=== PATIENT | female | born 1995 | race Caucasian/White ===

== ENCOUNTER 2018-12-12 14:23 | Outpatient (REF) | payer MEDICAID, SELFPAY ==
[2018-12-14 10:16] LABS: Varicella IgG Antibody Positive
== END 2018-12-12 14:43 ==
LOC: LBN 14:23
PROVIDERS: PCP Internal Medicine; Visit Provider Internal Medicine
DX: Z11.59 Encounter for screening for other viral diseases (principal); Z01.84 Encounter for antibody response examination
CPT/HCPCS: 86787

== ENCOUNTER 2019-03-27 11:16 | Emergency (ER) | payer MEDICAID, SELFPAY ==
[2019-03-27 11:29] VITALS: BP 118/74; PULSE 94; RESP 16; TEMP 36.7; O2SAT 97
--- NOTE | 2019-03-27 11:34 | ED.GENADUL_ITS ---
Discharge Plan Disposition Patient Disposition: HOME Condition: Stable Discharge Details Chief Complaint: Urinary Clinical Impression: UTI (urinary tract infection) Primary Care Provider: Rufina Downing ED Provider: Nany Clark Home Meds and New Rx's Prescriptions: New cephalexin [Keflex] 500 mg capsule 500 mg PO BID Qty: 9 RF: 0 Continued ibuprofen 200 mg tablet 600 mg PO QID PRNRF: 0 diphenhydramine HCl [Benadryl Allergy] 25 mg tablet 25 mg PO QHS PRNRF: 0 triamcinolone acetonide 0.5 % cream 1 applic TP .BID-QID Qty: 15 RF: 0 Pepto-Bismol 262 MG tablet 262 mg PO PRN PRNRF: 0 hydroxyzine HCl 25 mg tablet 25 mg PO QID PRN (Reason: anxiety) Qty: 90 RF: 2 duloxetine [Cymbalta] 60 mg capsule,delayed release(DR/EC) 120 mg PO DAILY Qty: 90 RF: 3 buspirone 15 mg tablet 15 mg PO BID Qty: 180 RF: 3 norethindrone ac-eth estradiol [Loestrin 09/10 (21)] 1-20 mg-mcg tablet 1 tab PO DAILY Qty: 4 RF: 3 quetiapine 300 mg tablet 300 mg PO HS Qty: 90 RF: 0 No Action ropinirole 0.5 mg tablet 1.5 mg PO HS PRN (Reason: restless legs) Qty: 270 RF: 3 sertraline [Zoloft] 50 mg tablet 50 mg PO DAILY Qty: 90 RF: 3 sumatriptan succinate [Imitrex] 25 mg tablet 25 mg PO see instructions Qty: 8 RF: 3 Discharge Instructions Instructions: Cephalexin (By mouth), Urinary Tract Infection in Women (ED) Additional Instructions: Please return immediately to the emergency department if you develop any new or worsening symptoms or if you become otherwise concerned. It is extremely important that you call soon as possible to make an appointment to be seen in follow-up for this visit by your primary care doctor. Referrals: Rufina Downing MD [Primary Care Provider] - Discharge Data Discharge Date/Time-TO BE ENTERED AT DEPARTURE: 03/27/19 12:27 Medical Decision Making Lindy Sawant is a 23-year-old woman with a history of anxiety, depression, opioid use disorder who presented to the emergency department with urinary symptoms typical of past UTIs over the past 3 days. On exam patient is very well and nontoxic appearing. Abdominal exam is benign. There is no CVA tenderness. Concern for likely uncomplicated UTI, doubt cervicitis at this time. Exam/history is not consistent with sepsis, pyelonephritis, PID, other acute emergent life-threatening process. Plan for UA, urine test. UA consistent with UTI. Urine test negative. Will send culture. Plan for Keflex. I had a lengthy discussion with the patient regarding return to emergency department precautions, home care, and importance of outpatient follow-up with her PCP. Patient verbalized understanding of the plan was amenable. All questions were answered. Medical Records Medical records reviewed: Yes I reviewed the patient's medical records. Lab Data Lab results reviewed: Yes I reviewed the patient's lab results. 03/27/19 11:35 Urine - Reflex from Ua Urine Culture - Final Staphylococcus Saprophyticus Gram Positive [facility] Tests Range/Units 03/27/19 11:35 Urine Color (Yellow) Yellow Urine Clarity (Clear) Cloudy Urine pH (5-8) 7.0 Ur Specific [place] (1.005-1.025) 1.020 Urine Protein (Negative) mg/dL Trace H Urine Ketones (Negative) mg/dL Negative Urine Blood (Negative) Trace-intact H Urine Nitrite (Negative) Negative Urine Bilirubin (Negative) Negative Urine Urobilinogen (Up TO 0.2) EU/dL 0.2 Ur Leukocyte Esterase (Negative) Trace H Urine RBC Not Applicable Urine WBC (0-5) HPF 20-50 Ur Epithelial Cells (Negative) HPF Few Urine Crystals Not Applicable Urine Bacteria (Negative) HPF Many Urine Mucus Not Applicable Ur Culture Indicated? Yes Urine Glucose (Negative) mg/dL Negative HPI General Mode of arrival: ambulatory . Date/Time Provider Initiated Documentation: 03/27/19 11:33 . Limitations to Documentation: no limitations . Information obtained by: patient . HPI Narrative: Lindy Sawant is a 23-year-old woman with a history of anxiety, depression, opioid use disorder presenting to the emergency department with urinary symptoms. Patient reports over the past 3 days she has had increased urinary frequency, urgency, and a burning sensation during urination. She reports mild pain in the suprapubic area. She denies any other pain. Patient reports that she has had similar symptoms in the past with several other UTIs. She states that she has had 3-4 UTIs in her life, with the last being approximately 1 year ago. Patient reports that each of these were treated with outpatient antibiotics without issue. Patient reports that she has no unusual or atypical features at this time. She denies vaginal discharge. No new sexual partners. She denies fevers, vomiting, diarrhea and feels otherwise in her usual state of health. Related Data Home Medications Medication Instructions Recorded Confirmed Pepto-Bismol 262 mg PO PRN PRN 11/06/14 03/27/19 hydroxyzine HCl 25 mg tablet 25 mg PO QID PRN #90 tab-cap 05/09/18 12/12/18 ibuprofen 200 mg tablet 600 mg PO QID PRN tab 06/20/18 03/27/19 buspirone 15 mg tablet 15 mg PO BID #180 tab-cap 07/25/18 03/27/19 duloxetine 60 mg capsule,delayed 120 mg PO DAILY #90 tab 07/25/18 03/27/19 release triamcinolone acetonide 0.5 % 1 applic TP .BID-QID #15 gm 08/31/18 03/27/19 topical cream norethindrone acetate 1 mg-ethinyl 1 tab PO DAILY #4 tab 11/29/18 03/27/19 estradiol 20 mcg tablet diphenhydramine HCl 25 mg tablet 25 mg PO QHS PRN 12/12/18 03/27/19 quetiapine 300 mg tablet 300 mg PO HS #90 tab-cap 03/20/19 03/27/19 cephalexin [Keflex] 500 mg PO BID #9 cap 03/27/19 ropinirole 0.5 mg tablet 1.5 mg PO HS PRN #270 tab-cap 03/28/19 sertraline 50 mg tablet 50 mg PO DAILY #90 tab-cap 03/28/19 sumatriptan succinate 25 mg tablet 25 mg PO see instructions #8 03/28/19 tab-cap Previous Rx's Medication Instructions Recorded hydroxyzine HCl 25 mg tablet 25 mg PO QID PRN #90 tab-cap 05/09/18 buspirone 15 mg tablet 15 mg PO BID #180 tab-cap 07/25/18 duloxetine 60 mg capsule,delayed 120 mg PO DAILY #90 tab 07/25/18 release triamcinolone acetonide 0.5 % 1 applic TP .BID-QID #15 gm 08/31/18 topical cream norethindrone acetate 1 mg-ethinyl 1 tab PO DAILY #4 tab 11/29/18 estradiol 20 mcg tablet quetiapine 300 mg tablet 300 mg PO HS #90 tab-cap 03/20/19 cephalexin [Keflex] 500 mg PO BID #9 cap 03/27/19 ropinirole 0.5 mg tablet 1.5 mg PO HS PRN #270 tab-cap 03/28/19 sertraline 50 mg tablet 50 mg PO DAILY #90 tab-cap 03/28/19 sumatriptan succinate 25 mg tablet 25 mg PO see instructions #8 03/28/19 tab-cap Allergies Allergy/AdvReac Type Severity Reaction Status Date / Time adhesive Allergy Intermediate Rash and Verified 03/27/19 11:31 inflammation benzoyl peroxide Allergy Intermediate Rash Verified 03/27/19 11:31 latex Allergy Intermediate rash Verified 03/27/19 11:31 methylprednisolone Allergy Intermediate Skin Rash Verified 03/27/19 11:31 nettle Allergy Mild rash Verified 03/27/19 11:31 Acne Free Allergy Intermediate Rash Uncoded 03/27/19 11:31 General Stated Complaint: Urinary DENNY: 3 Review of Systems Review of Systems Constitutional: denies fevers Eyes: denies eye pain ENT: denies facial pain, dental pain, sore throat Cardiovascular: denies chest pain Respiratory: denies SOB, cough GI: denies vomiting, diarrhea, reports mild lower abdominal pain worse during urination : denies flank pain, vaginal discharge, reports urinary frequency, hesitancy, and burning MSK: denies back pain, neck pain, arthralgias, myalgias Skin: denies rash Neuro: denies headaches [facility] Medical History ADHD (attention deficit hyperactivity disorder) (Acute 11/04/14) Depressive disorder (Acute 11/04/14) Dermatitis (Acute) Environmental allergies (Acute 11/04/14) Esophageal reflux (Acute 11/04/14) JULIANA (generalized anxiety disorder) (Acute 08/02/16) Migraine headache (Acute 10/30/15) Post-traumatic stress disorder (Acute 08/02/16) Restless legs syndrome (RLS) (Acute 02/28/17) Tobacco use disorder (Acute 11/04/14) Uncomplicated opioid abuse (Acute 08/02/16) Unspecified contraceptive management (Acute 10/25/16) Social History Smoking/Tobacco Use Status: Former Tobacco Use Alcohol Intake: current Alcohol Intake frequency: holidays/special occasions only Drug use: Never Substance use type: does not use Number of Children: 0 current occupation: works at [id number] Pets and animals: Yes Pets and animals: other Details: rabbit Sexually active: Yes Current gender identity: female What type of physical activity do you participate in: regular exercise Frequency: 1-2 times per week Working smoke detector in home: No Carbon monox detector in home: No Do you feel safe in your relationship?: Yes History History 0 Para Hx # Term Pregnancies Multiple births Hx # Pregnancies Ectopic pregnancies AB induced Hx Number of Living Children AB spontaneous Exam Narrative Exam Narrative: Constitutional: well and [id number], pleasant, conversing normally HENT: head atraumatic/normocephalic/normal inspection, mucous membranes moist Eyes: conjunctiva normal, sclera normal, pupils 3mm b/l Neck: no stridor, normal ROM, trachea midline Resp: normal work of breathing, LCTAB Cardio: normal rate, normal rhythm, no murmur appreciated GI: abdomen soft, non-tender, non-distended Back: No CVA tenderness bilaterally Skin: warm, dry, normal color, no rash Neuro: alert, not altered, grossly non-focal, normal tone Ext: Moving all extremities equally Psych: normal mood, normal affect, normal behavior Course Vital Signs Temperature 36.7 C 03/27/19 11:29 Pulse 94 H 03/27/19 11:29 Respiratory Rate 16 03/27/19 11:29 Blood Pressure 118/74 03/27/19 11:29 Pulse Oximetry 97 03/27/19 11:29 Temperature 36.7 C 03/27/19 11:29 Temperature Source Skin 03/27/19 11:29 Pulse 94 H 03/27/19 11:29 Respiratory Rate 16 03/27/19 11:29 Respiratory Effort Non-Labored 03/27/19 11:29 Blood Pressure 118/74 03/27/19 11:29 Blood Pressure Position Sitting 03/27/19 11:29 Pulse Oximetry 97 03/27/19 11:29 Oxygen Delivery Method Room Air 03/27/19 11:29 Oxygen Flow Rate 0 03/27/19 11:29 Pain Level 2 03/27/19 11:29
[2019-03-27 11:47] LABS: Bilirubin Negative (Negative); Blood Trace-intact (Negative); Clarity Cloudy (Clear); Glucose Negative (Negative); Ketones Negative (Negative); Leukocyte Esterase Trace (Negative); Nitrite Negative (Negative); Urobilinogen 0.2 EU/dL (Up TO 0.2)
[2019-03-27 12:00] LABS: Bacteria Many HPF (Negative); Epithelial Cells Few HPF (Negative); WBC 20-50 HPF (0-5)
[2019-03-27 12:01] LABS: C & S Indicated? Yes
[2019-03-27] MEDS: Cephalexin 500 MG CAP PO (12:27)
== END 2019-03-27 12:27 | disposition home or self-care (01) ==
PROVIDERS: Emergency Provider Student in an Organized Health Care Education/Training Program; PCP Internal Medicine
DX: N39.0 Urinary tract infection, site not specified (principal); B95.7 Other staphylococcus as the cause of diseases classified elsewhere; Z87.440 Personal history of urinary (tract) infections
CPT/HCPCS: 81025; 87077; 99283; 81003; 81015; 87086; 87186

== ENCOUNTER 2020-01-15 12:39 | Outpatient (REF) | payer MEDICAID, SELFPAY ==
--- NOTE | 2020-01-15 11:00 | PAPFT_PTH ---
PATIENT: Lindy Urbina LOC: [facility] U#:[id number] AGE/SX: 24/F ROOM: RE01/15/[address]: JACOB Toure : 1995 BED: DIS: 01/15/2020 SPEC #: [id number] RECD: 01/15/20 13:01 STATUS: QAMAR REKrystle #: [id number] MARTA: 01/15/20 11:[address]: Paola Moise DEPT: [facility] Cytology RECD BY: Jeane Akhtar ENTERED: 01/15/20 13:01 SP TYPE: PAPFT OTHR DR: Rufina Downing MD Tissues: 1 - CX/ENDOCX FOR PAP SMEARS Procedures: PAP THIN PREP/UVM Screening Comments: [id number]
[2020-01-17 07:21] LABS: Chlamydia Result Negative (Negative); GC Result Negative (Negative)
== END 2020-01-15 12:59 ==
LOC: LBN 12:39
PROVIDERS: PCP Internal Medicine; Visit Provider Nurse Practitioner Family
DX: Z11.3 Encounter for screening for infections with a predominantly sexual mode of transmission (principal); Z12.4 Encounter for screening for malignant neoplasm of cervix
CPT/HCPCS: 87491; 87591; 88142

== ENCOUNTER 2020-07-11 13:19 | Emergency (ER) | payer MEDICAID, SELFPAY ==
[2020-07-11 13:22] VITALS: BP 126/88; PULSE 117; RESP 18; TEMP 36.7; O2SAT 94
[2020-07-11 13:57] LABS: Bilirubin Color Interference (Negative); Blood Color Interference (Negative); Clarity Cloudy (Clear); Glucose Color Interference mg/dL (Negative); Ketones Color Interference mg/dL (Negative); Leukocyte Esterase Color Interference (Negative); Nitrite Color Interference (Negative); Urobilinogen Color Interference EU/dL (Up TO 0.2)
--- NOTE | 2020-07-11 13:57 | ED.GENADUL_ITS ---
Discharge Plan Disposition Patient Disposition: HOME Condition: Improving Discharge Details Clinical Impression: Acute cystitis Primary Care Provider: Rufina Downing ED Provider: Ramiro Morton Home Meds and New Rx's Prescriptions: New cephalexin 500 mg capsule 500 mg PO TID 7 Days Qty: 21 RF: 0 Continued diphenhydramine HCl [Benadryl Allergy] 25 mg tablet 25 mg PO QHS PRNRF: 0 hydroxyzine HCl 25 mg tablet 25 mg PO QID PRN (Reason: anxiety) Qty: 90 RF: 3 Pepto-Bismol 262 MG tablet 262 mg PO PRN PRNRF: 0 duloxetine [Cymbalta] 60 mg capsule,delayed release(DR/EC) 120 mg PO DAILY Qty: 90 RF: 3 ropinirole 0.5 mg tablet 1.5 mg PO HS PRN (Reason: restless legs) Qty: 270 RF: 3 sertraline [Zoloft] 50 mg tablet 50 mg PO DAILY Qty: 90 RF: 3 norethindrone ac-eth estradiol [Loestrin 09/10 ()] 1-20 mg-mcg tablet 1 tab PO DAILY Qty: 84 RF: 3 quetiapine [Seroquel] 400 mg tablet 400 mg PO QHS Qty: 90 RF: 3 buspirone 15 mg tablet 15 mg PO BID Qty: 180 RF: 2 sumatriptan succinate [Imitrex] 25 mg tablet 25 mg PO see instructions PRNRF: 0 Discharge Instructions Additional Instructions: Continue small, frequent sips of fluids to maintain hydration Take antibiotics as prescribed. May continue the Urostat as you have been. Return to the ER for fever, vomiting, worsening discomfort or any other acute concerns. Medical Decision Making This is 24-year-old female who presents with 3 days of intermittent episodes of burning and frequency of urination. She has not had a fever, back pain, nor vomiting or abdominal pain. She was noted to have an elevated heart rate at triage, within normal limits at time of my exam. Her exam is reassuring and she is not toxic in appearance. Urinalysis obtained and obscured by the use of urostat. Greater than 50 white blood cells and few squamous cells present. I do feel the presentation, history of same, are consistent with urinary tract infection will treat with a course of antibiotics. She is stable and appropriate for discharge to home. HPI General Mode of arrival: ambulatory . Date/Time Provider Initiated Documentation: 07/11/20 13:19 . Limitations to Documentation: no limitations . Information obtained by: patient . History of Present Illness 24 year old F presents to the emergency department with the chief complaint of Burning with urination for 3 days, and is localized to the pelvis and genitals. Patient reports no radiation. Patient started experiencing this day(s) and it has been intermittent. No relieving factors improve symptom(s), No exacerbating factors reported . Patient notes denies fever/chills, loss of appetite and nausea/vomiting. Patient did receive the following treatments prior to arrival, other ([id number] Urostat) Related Data Home Medications Medication Instructions Recorded Confirmed Pepto-Bismol 262 mg PO PRN PRN 11/06/14 07/11/20 diphenhydramine HCl 25 mg tablet 25 mg PO QHS PRN 12/12/18 07/11/20 hydroxyzine HCl 25 mg tablet 25 mg PO QID PRN #90 tab-cap 07/04/19 07/11/20 duloxetine 60 mg capsule,delayed 120 mg PO DAILY #90 tab 08/11/19 07/11/20 release ropinirole 0.5 mg tablet 1.5 mg PO HS PRN #270 tab-cap 02/25/20 07/11/20 sertraline 50 mg tablet 50 mg PO DAILY #90 tab-cap 02/25/20 07/11/20 norethindrone acetate 1 mg-ethinyl 1 tab PO DAILY #84 tab 04/18/20 07/11/20 estradiol 20 mcg tablet quetiapine 400 mg tablet 400 mg PO QHS #90 tab 05/20/20 07/11/20 buspirone 15 mg tablet 15 mg PO BID #180 tab-cap 07/08/20 07/11/20 cephalexin 500 mg PO TID 7 Days #21 cap 07/11/20 sumatriptan succinate [Imitrex] 25 mg PO see instructions PRN 07/11/20 07/11/20 Previous Rx's Medication Instructions Recorded hydroxyzine HCl 25 mg tablet 25 mg PO QID PRN #90 tab-cap 07/04/19 duloxetine 60 mg capsule,delayed 120 mg PO DAILY #90 tab 08/11/19 release ropinirole 0.5 mg tablet 1.5 mg PO HS PRN #270 tab-cap 02/25/20 sertraline 50 mg tablet 50 mg PO DAILY #90 tab-cap 02/25/20 norethindrone acetate 1 mg-ethinyl 1 tab PO DAILY #84 tab 04/18/20 estradiol 20 mcg tablet quetiapine 400 mg tablet 400 mg PO QHS #90 tab 05/20/20 buspirone 15 mg tablet 15 mg PO BID #180 tab-cap 07/08/20 cephalexin 500 mg PO TID 7 Days #21 cap 07/11/20 Allergies Allergy/AdvReac Type Severity Reaction Status Date / Time adhesive Allergy Intermediate Rash and Verified 07/11/20 13:25 inflammation benzoyl peroxide Allergy Intermediate Rash Verified 07/11/20 13:25 latex Allergy Intermediate rash Verified 07/11/20 13:25 methylprednisolone Allergy Intermediate Skin Rash Verified 07/11/20 13:25 nettle Allergy Mild rash Verified 07/11/20 13:25 Acne Free Allergy Intermediate Rash Uncoded 07/11/20 13:25 General Stated Complaint: Urinary DENNY: 3 Review of Systems Narrative: No fever, no back pain, no vaginal bleeding or discharge. 6 systems reviewed and otherwise negative [facility] Medical History ADHD (attention deficit hyperactivity disorder) (11/04/14) Depressive disorder (11/04/14) Per Sienna Fofana [employer] F33.1 07/27/16 RH Dermatitis Environmental allergies (11/04/14) Esophageal reflux (11/04/14) Flushing JULIANA (generalized anxiety disorder) (08/02/16) Migraine headache (10/30/15) Has h/o migraine headaches Post-traumatic stress disorder (08/02/16) Restless legs syndrome (RLS) (02/28/17) 02/28/17 Sleep Services Tobacco use disorder (11/04/14) Uncomplicated opioid abuse (08/02/16) Unspecified contraceptive management (10/25/16) Family History Mother Migraine Anxiety Depression Diabetes Social History Smoking/Tobacco Use Status: Former Tobacco Use Smoking risk assessment performed?: Yes Alcohol Intake: current Alcohol Intake frequency: holidays/special occasions only Drug use: Never Substance use type: does not use Household members: significant other Number of Children: 0 Communication Needs: None current occupation: works at [employer] Pets and animals: Yes Pets and animals: other Details: rabbit Sexually active: Yes Current gender identity: female What is your relationship status?: living with partner Panel score (0-1 are the most socially isolated patients): 1 What type of physical activity do you participate in: regular exercise Frequency: 1-2 times per week Seatbelt use: sometimes Drive 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 Pleasant, well groomed, interactive. HEAD: Normocephalic, atraumatic EYES: PERRL, EOMI NECK: Full ROM, no DOV, no menigismus CHEST/RESP: Nontender, clear to auscultation bilateral, no wheeze/rhonchi/rales CARDIOVASCULAR: RRR, no murmur, rub elin. 2+ Rad pulse bilateral ABDOMEN: Soft, nontender, no mass. +Bowel sounds EXT: Full ROM, no edema, no rash Neuro: Grossly normal neurologic exam, conversant, interactive. Psych: Speech fluent, thoughts congruent, affect normal Course Vital Signs Vital signs: Vital Signs Temperature 36.7 C 07/11/20 13:22 Pulse 117 H 07/11/20 13:22 Respiratory Rate 18 07/11/20 13:22 Blood Pressure 126/88 07/11/20 13:22 Pulse Oximetry 94 07/11/20 13:22 Temperature 36.7 C 07/11/20 13:22 Temperature Source Temporal Artery Scan 07/11/20 13:22 Pulse 117 H 07/11/20 13:22 Respiratory Rate 18 07/11/20 13:22 Respiratory Effort Non-Labored 07/11/20 13:28 Blood Pressure 126/88 07/11/20 13:22 Blood Pressure Position Sitting 07/11/20 13:22 Pulse Oximetry 94 07/11/20 13:22 Oxygen Delivery Method Room Air 07/11/20 13:22 Oxygen Flow Rate 0 07/11/20 13:22 Pain Level 8 07/11/20 13:22
[2020-07-11 14:02] LABS: C & S Indicated? Yes; Epithelial Cells Few HPF (Negative); WBC >50 HPF (0-5)
[2020-07-11] MEDS: Cephalexin 500 MG CAP PO (14:15)
== END 2020-07-11 14:18 | disposition home or self-care (01) ==
PROVIDERS: Emergency Provider Emergency Medicine; PCP Internal Medicine
DX: N30.00 Acute cystitis without hematuria (principal)
CPT/HCPCS: 81025; 99283; 81003; 81015; 87086

== ENCOUNTER 2021-06-25 14:58 | Outpatient (REF) | payer MEDICAID, SELFPAY ==
--- NOTE | 2021-06-25 14:00 | PAPFT_PTH ---
PATIENT: Lindy Urbina LOC: [facility] U#:[id number] AGE/SX: 25/F ROOM: RE06/25/[address]: JACOB Toure : 1995 BED: DIS: 06/25/2021 SPEC #: [id number] RECD: 06/25/21 16:46 STATUS: QAMAR REQ #: [id number] MARTA: 06/25/21 14:[address]: Paola Moise DEPT: [facility] Cytology RECD BY: Jeane Akhtar ENTERED: 06/25/21 16:47 SP TYPE: PAPFT OTHR DR: Rufina Downing MD Tissues: 1 - CX/ENDOCX FOR PAP SMEARS Procedures: PAP THIN PREP/UVM Screening Comments:
[2021-06-26 14:46] LABS: Chlamydia Result Negative (Negative); GC Result Negative (Negative)
== END 2021-06-25 14:59 | disposition home or self-care (01) ==
LOC: LBN 14:58
PROVIDERS: PCP Internal Medicine; Visit Provider Nurse Practitioner Family
DX: Z11.3 Encounter for screening for infections with a predominantly sexual mode of transmission (principal); Z12.4 Encounter for screening for malignant neoplasm of cervix
CPT/HCPCS: 87491; 87591; 88142

== ENCOUNTER 2021-10-25 15:48 | Emergency (ER) | payer MEDICAID, SELFPAY ==
[2021-10-25] VITALS (17 sets, daily range): BP systolic 108–130; BP diastolic 76–94; PULSE 98–139; RESP 12–18; TEMP 36.5–37.6; O2SAT 97–99
--- NOTE | 2021-10-25 15:45 | RT.EKG_ITS ---
APPROVED REPORT Exam: Resting ECG Reason for Exam: chest pressure Patient Location: E HR:112 bpm ECG Measurements Heart Rate 112 AXIS KS 150 P 49 QRSd 81 QRS -18 QT 291 T 17 QTc 397 Conclusion Sinus tachycardia...rate> 99. Sinus. No STEMI. I have reviewed and interpreted ECG and agree with software generated interpretation.
--- NOTE | 2021-10-25 16:00 | DI.RAD_ITS ---
Exam(s) XR CHEST 2V PA LATERAL EXAM: XR CHEST 2V PA LATERAL CLINICAL HISTORY: L sided chest pain TECHNIQUE: 2D digital imaging was performed. COMPARISON: [facility] from 02/20/2017 FINDINGS: MEDIASTINUM: Normal. HEART: Normal. PULMONARY VASCULATURE: Normal. LUNGS: Clear. PLEURAL SPACE: No pleural effusion or pneumothorax. BONE:Unremarkable for age. IMPRESSION: No acute abnormality. DATA REPOSITORY: RADIATION DOSE DELIVERED:
[2021-10-25] MEDS: Normal Saline 1,000 ML 1000 ML IV (16:27)
--- NOTE | 2021-10-25 16:31 | ED.GENADUL_ITS ---
Discharge Plan Disposition Patient Disposition: HOME Condition: Improving Discharge Details Clinical Impression: Chest pressure Primary Care Provider: Rufina Downing ED Provider: Constantino Rodrigez Home Meds and New Rx's Prescriptions: Continued diphenhydramine HCl [Benadryl Allergy] 25 mg tablet 25 mg PO QHS PRN0RF metoprolol succinate 25 mg tablet extended release 24 hr 25 mg PO DAILY Qty: 90 3RF medroxyprogesterone [Depo-Provera] 150 mg/mL syringe 150 mg IM ONCE Qty: 1 0RF duloxetine [Cymbalta] 60 mg capsule,delayed release(DR/EC) 120 mg PO DAILY Qty: 90 3RF sertraline [Zoloft] 50 mg tablet 50 mg PO DAILY Qty: 90 3RF quetiapine [Seroquel] 400 mg tablet 400 mg PO QHS Qty: 90 3RF hydroxyzine HCl 25 mg tablet 25 mg PO QID PRN (Reason: anxiety) Qty: 90 3RF medroxyprogesterone [Depo-Provera] 150 mg/mL suspension 150 mg IM Q12W Qty: 1 3RF Pepto-Bismol 262 MG tablet 262 mg PO PRN PRN0RF ropinirole 0.5 mg tablet 1.5 mg PO HS PRN (Reason: restless legs) Qty: 270 3RF Rx Instructions: 3 tabs at bedtime as needed for restless legs buspirone 15 mg tablet 15 mg PO BID Qty: 180 3RF sumatriptan succinate [Imitrex] 25 mg tablet 25 mg PO see instructions PRN0RF Rx Instructions: take one tab for migraine and can repeat in 2 hours if not better, Cannot take more than 4 tabs in a day Discharge Instructions Instructions: Chest Pain (ED) Additional Instructions: Blood pressure here in the ER today has been slightly low to normal but certainly not emergent. Work-up in the ER does not reveal any obvious emergent process. We did discuss having you stay in the ER longer for observation and repeating your cardiac enzyme, troponin, but if you feel well and would rather be discharged home. Please watch for new or worsening symptoms and return to the ER for any concerns. As we discussed, please check your blood pressure 2-3 times a day at the same time under the same circumstances and make a log and bring this information to your primary care provider so they can adjust your blood pressure medications if required. I do recommend contacting your primary care office tomorrow to discuss your ER visit need for outpatient reevaluation. Discharge Data Discharge Date/Time-TO BE ENTERED AT DEPARTURE: 10/25/21 18:41 Medical Decision Making This is a 26-year-old female who reports history of hypertension, felt funny approximately 1 or 2 hours ago which prompted her to check her blood pressure and noted it to be 100/60 which she reports is very low for her. Subsequently she states that she panicked and then felt a sensation in her chest. Clinically she appears well, nontoxic, blood pressure appropriate at 130/94. Pulse is 117 in triage, during my exam it is 98. She is currently asymptomatic. Given her presentation, EKG was obtained and I will initiate a cardiac work-up although low suspicion for ACS. We will also obtain a D-dimer given she does receive Depo injections although low suspicion for PE. We will also obtain thyroid studies. Pt provided 1 L IV fluid. Initial laboratory values are unremarkable for any obvious emergent process. No evidence of infection, anemia, D-dimer is unremarkable at 421, will not pursue CTA of the chest. Electrolytes unremarkable, troponin less than 50, TSH 2.65. Urinalysis negative for infection Unremarkable chest X-ray Discussed work-up with patient. She is relieved, remains hemodynamically sta ble, and remains asymptomatic. Given her initial presentation we discussed observation here in the ER and obtaining a repeat delta troponin at the 3-hour savannah. Patient states that she feels well and would prefer to be discharged. She does understand that without a delta troponin her work-up here in the ER is not complete. We discussed her blood pressure in length. Plan is to make a log of her blood pressure at home and to bring this to her primary care provider so they can assess her blood pressures over a period of time and simply not 1 blood pressure reading. Strict discharge and return precautions were provided. This documentation was generated using [employer] system, please disregard any oddities of phrase or misspellings. Medical Records Medical records reviewed: Yes I reviewed the patient's medical records. Imaging Data Radiologic Study: Attestation: I personally reviewed and interpreted this imaging study as follows: Imaging: X-Ray Radiologist's impression: PROCEDURE INFORMATION: Exam: XR Chest Exam date and time: 10/25/2021 4:08 PM Age: 26 years old Clinical indication: Other: L sided chest pain TECHNIQUE: Imaging protocol: XR of the chest. Views: 2 views. COMPARISON: CR THORACIC SPINE 02/20/2017 5:07 PM FINDINGS: Lungs: Clear lungs. Pleural spaces: No sizable pleural effusion. No pneumothorax. Heart/Mediastinum: Cardiomediastinal inés houette is within normal limits. Bones/joints: No acute displaced fracture or dislocation. IMPRESSION: No acute cardiopulmonary process. Lab Data Lab results reviewed: Yes I reviewed the patient's lab results. Labs: Laboratory Tests Range/Units 10/25/21 10/25/21 10/25/21 16:20 16:20 16:27 WBC (4.4-10.8) 10^3/uL RBC (3.93-5.22) 10^6/uL Hgb (11.2-15.7) g/dL Hct (36.0-46.0) % MCV (80-95) fL MCH (27.0-33.0) pg MCHC (32.0-36.0) % RDW (11.7-14.6) % Plt Count (130-400) 10^3/uL MPV (8.0-11.0) fL Immature Gran % Neutrophils % Lymphocytes % Monocytes % Eosinophils % Basophils % Nucleated RBC % % Absolute Neutrophils (1.2-6.7) 10^3/uL Absolute Lymphocytes (1.2-3.4) 10^3/uL Absolute Monocytes (0.1-0.8) 10^3/uL Absolute Eosinophils (0.0-0.7) 10^3/uL Absolute Basophils (0.0-0.2) 10^3/uL PT (9.3-11.0) sec INR (0.9-1.1) APTT (21.0-27.5) sec D-Dimer (<500) ng/mlFEU Sodium (136-145) mmol/L 137 Potassium (3.5-5.1) mmol/L 4.1 Chloride (98-107) mmol/L 104 Carbon Dioxide (21.0-32.0) mmol/L 24.4 Anion Gap (3-11) mmol/L 8.6 BUN (7-18) mg/dL 10 Creatinine (0.55-1.02) mg/dL 1.1 H Estimated GFR/1.73 m2 (mL/min/1.73m2) 59.58 Glucose (74-106) mg/dL 93 Calcium (8.5-10.1) mg/dL 9.0 Magnesium (1.8-2.4) mg/dL 2.0 Total Bilirubin (0.2-1.0) mg/dL 0.3 AST (15-37) U/L 15 ALT (14-59) U/L 21 Alkaline Phosphatase (46-116) U/L 113 Troponin I (<or=60) ng/L < 50 Total Protein (6.4-8.2) g/dL 7.9 Albumin (3.4-5.0) g/dL 3.8 TSH (0.36-3.74) uIU/mL 2.65 Urine Color (Yellow) Yellow Urine Clarity (Clear) Clear Urine pH (5-8) 6.5 Ur Specific [place] (1.005-1.025) >= 1.030 H Urine Protein (Negative) mg/dL 30 H Urine Ketones (Negative) mg/dL Negative Urine Blood (Negative) Negative Urine Nitrite (Negative) Negative Urine Bilirubin (Negative) Negative Urine Urobilinogen (Up TO 0.2) EU/dL 0.2 Ur Leukocyte Esterase (Negative) Negative Urine RBC (0-2) HPF 3-5 H Urine WBC (0-5) HPF 0-2 Ur Epithelial Cells (Negative) HPF Many Urine Crystals (Negative) HPF Negative Urine Bacteria (Negative) HPF Many Urine Casts (Negative) LPF Negative Urine Mucus (Negative) Negative Ur Culture Indicated? No/Sq. Contamination Urine Glucose (Negative) mg/dL Negative Urine Opiates Screen (Negative) Negative Urine Methadone Screen (Negative) Negative Ur Barbiturates Screen (Negative) Negative Ur Tricyclics Screen (Negative) Positive A Ur Amphetamines Screen (Negative) Negative U Benzodiazepines Scrn (Negative) Negative Urine Cocaine Screen (Negative) Negative Ur THC Screen (Negative) Negative Range/Units 10/25/21 10/25/21 10/25/21 16:27 16:27 19:07 WBC (4.4-10.8) 10^3/uL 6.91 RBC (3.93-5.22) 10^6/uL 4.52 Hgb (11.2-15.7) g/dL 13.4 Hct (36.0-46.0) % 40.3 MCV (80-95) fL 89.2 MCH (27.0-33.0) pg 29.6 MCHC (32.0-36.0) % 33.3 RDW (11.7-14.6) % 12.4 Plt Count (130-400) 10^3/uL 285 MPV (8.0-11.0) fL 9.2 Immature Gran % 0.4 Neutrophils % 64.8 Lymphocytes % 23.9 Monocytes % 8.8 Eosinophils % 0.9 Basophils % 1.2 Nucleated RBC % % 0 Absolute Neutrophils (1.2-6.7) 10^3/uL 4.48 Absolute Lymphocytes (1.2-3.4) 10^3/uL 1.65 Absolute Monocytes (0.1-0.8) 10^3/uL 0.61 Absolute Eosinophils (0.0-0.7) 10^3/uL 0.06 Absolute Basophils (0.0-0.2) 10^3/uL 0.08 PT (9.3-11.0) sec 10.3 INR (0.9-1.1) 1.0 APTT (21.0-27.5) sec 27.7 H D-Dimer (<500) ng/mlFEU 421 Sodium (136-145) mmol/L Potassium (3.5-5.1) mmol/L Chloride (98-107) mmol/L Carbon Dioxide (21.0-32.0) mmol/L Anion Gap (3-11) mmol/L BUN (7-18) mg/dL Creatinine (0.55-1.02) mg/dL Estimated GFR/1.73 m2 (mL/min/1.73m2) Glucose (74-106) mg/dL Calcium (8.5-10.1) mg/dL Magnesium (1.8-2.4) mg/dL Total Bilirubin (0.2-1.0) mg/dL AST (15-37) U/L ALT (14-59) U/L Alkaline Phosphatase (46-116) U/L Troponin I (<or=60) ng/L Cancelled Total Protein (6.4-8.2) g/dL Albumin (3.4-5.0) g/dL TSH (0.36-3.74) uIU/mL Urine Color (Yellow) Urine Clarity (Clear) Urine pH (5-8) Ur Specific [place] (1.005-1.025) Urine Protein (Negative) mg/dL Urine Ketones (Negative) mg/dL Urine Blood (Negative) Urine Nitrite (Negative) Urine Bilirubin (Negative) Urine Urobilinogen (Up TO 0.2) EU/dL Ur Leukocyte Esterase (Negative) Urine RBC (0-2) HPF Urine WBC (0-5) HPF Ur Epithelial Cells (Negative) HPF Urine Crystals (Negative) HPF Urine Bacteria (Negative) HPF Urine Casts (Negative) LPF Urine Mucus (Negative) Ur Culture Indicated? Urine Glucose (Negative) mg/dL Urine Opiates Screen (Negative) Urine Methadone Screen (Negative) Ur Barbiturates Screen (Negative) Ur Tricyclics Screen (Negative) Ur Amphetamines Screen (Negative) U Benzodiazepines Scrn (Negative) Urine Cocaine Screen (Negative) Ur THC Screen (Negative) ECG Data Attestation: I personally reviewed and interpreted this ECG (s) as follows: Interpretation: Please see official EKG report by Dr. Vega. Sinus tachycardia, ventricular 112, no STEMI. HPI General Mode of arrival: ambulatory . Date/Time Provider Initiated Documentation: 10/25/21 15:57 . Limitations to Documentation: no limitations . Information obtained by: patient . HPI Narrative: This is a 26-year-old female, past medical history that includes hypertension, migraines, anxiety, GERD, former smoker, presenting to the ER for concern of low blood pressure. Patient states that she has had a cold to control hypertension for quite some time and is on multiple medications, there have been no recent changes. Patient states that she was walking out of a store roughly 1-2 hours ago when she simply did not feel right, felt a little anxious and shaky, difficult to explain exactly what she felt. This prompted her to check her blood pressure and she noted it to be 100/60 which she states is low for her and she panicked. Subsequently she states that she felt a midsternal chest pressure which lasted for a few minutes and after she calmed down resolved com pletely. She reports currently she is asymptomatic. Upon presentation to the ER her blood pressure was 130/94 and her pulse was 117. Patient states that she typically has a somewhat fast heartbeat. Related Data Home Medications Medication Instructions Recorded Confirmed bismuth subsalicylate 262 mg 262 mg PO PRN PRN 11/06/14 10/25/21 tablet (Pepto-Bismol) diphenhydramine HCl 25 mg tablet 25 mg PO QHS PRN 12/12/18 10/25/21 (Benadryl Allergy) sumatriptan succinate 25 mg tablet 25 mg PO see instructions PRN 07/11/20 10/25/21 (Imitrex) duloxetine 60 mg capsule,delayed 120 mg PO DAILY #90 tab 09/30/20 10/25/21 release (Cymbalta) ropinirole 0.5 mg tablet 1.5 mg PO HS PRN #270 tab-cap 02/16/21 10/25/21 metoprolol succinate 25 mg 25 mg PO DAILY #90 tab 04/14/21 10/25/21 tablet,extended release 24 hr hydroxyzine HCl 25 mg tablet 25 mg PO QID PRN #90 tab-cap 05/27/21 10/25/21 quetiapine 400 mg tablet (Seroquel) 400 mg PO QHS #90 tab 05/27/21 10/25/21 sertraline 50 mg tablet (Zoloft) 50 mg PO DAILY #90 tab-cap 05/27/21 10/25/21 medroxyprogesterone 150 mg/mL 150 mg IM Q12W #1 ml 06/25/21 10/25/21 intramuscular suspension (Depo-Provera) buspirone 15 mg tablet 15 mg PO BID #180 tab-cap 07/28/21 10/25/21 Previous Rx's Medication Instructions Recorded duloxetine 60 mg capsule,delayed 120 mg PO DAILY #90 tab 09/30/20 release (Cymbalta) ropinirole 0.5 mg tablet 1.5 mg PO HS PRN #270 tab-cap 02/16/21 metoprolol succinate 25 mg 25 mg PO DAILY #90 tab 04/14/21 tablet,extended release 24 hr hydroxyzine HCl 25 mg tablet 25 mg PO QID PRN #90 tab-cap 05/27/21 quetiapine 400 mg tablet (Seroquel) 400 mg PO QHS #90 tab 05/27/21 sertraline 50 mg tablet (Zoloft) 50 mg PO DAILY #90 tab-cap 10/06/21 medroxyprogesterone 150 mg/mL 150 mg IM Q12W #1 ml 06/25/21 intramuscular suspension (Depo-Provera) buspirone 15 mg tablet 15 mg PO BID #180 tab-cap 07/28/21 Allergies Allergy/AdvReac Type Severity Reaction Status Date / Time adhesive Allergy Intermediate Rash and Verified 10/25/21 16:04 inflammation benzoyl peroxide Allergy Intermediate Rash Verified 10/25/21 16:04 latex Allergy Intermediate rash Verified 10/25/21 16:04 methylprednisolone Allergy Intermediate Skin Rash Verified 10/25/21 16:04 nettle Allergy Mild rash Verified 10/25/21 16:04 Acne Free Allergy Intermediate Rash Uncoded 10/25/21 16:04 General Stated Complaint: GenMedical DENNY: 3 Review of Systems Constitutional Constitutional: Denies fever(s) and Denies headache(s) Eyes Eyes: Denies change in vision ENT Ears, Nose, Mouth, and Throat: Denies headache(s) and Denies neck pain Cardiovascular Cardiovascular: Reports chest pain and Denies dyspnea Respiratory Respiratory: Denies cough and Denies dyspnea Gastrointestinal Gastrointestinal: Denies abdominal pain, Denies nausea and Denies vomiting Musculoskeletal Musculoskeletal: Denies neck pain Integumentary/Breasts Skin/Breast: Denies rash Neurologic Neurologic: Denies headache(s) Psychiatric Psychiatric: Reports anxiety PFSH All Active Problems Chest pressure (Acute) Contraception (Acute) Annual physical exam (Acute) Essential hypertension (Acute) Dermatitis (Acute) Tobacco use disorder (Acute 11/04/14) Restless legs syndrome (RLS) (Acute 02/28/17) 02/28/17 Sleep Services Post-traumatic stress disorder (Acute 08/02/16) Migraine headache (Acute 10/30/15) Has h/o migraine headaches JULIANA (generalized anxiety disorder) (Acute 08/02/16) Esophageal reflux (Acute 11/04/14) Environmental allergies (Acute 11/04/14) Depressive disorder (Chronic 11/04/14) Per Sienna Fofana NP F33.1 07/27/16 [facility] Unspecified contraceptive management (Acute 10/25/16) ADHD (attention deficit hyperactivity disorder) (Acute 11/04/14) Medical History [place] Family History Mother Migraine Anxiety Depression Diabetes Social History Smoking/Tobacco Use Status: Former Tobacco Use Smoking risk assessment performed?: Yes Alcohol Intake: current Alcohol Intake frequency: holidays/special occasions only Drug use: Never Substance use type: does not use Household members: significant other Number of Children: 0 Communication Needs: None current occupation: works at [email or web address] Pets and animals: Yes Pets and animals: other Details: rabbit Sexually active: Yes Current gender identity: female What is your relationship status?: living with partner Panel score (0-1 are the most socially isolated patients): 1 What type of physical activity do you participate in: regular exercise Frequency: 1-2 times per week Seatbelt use: sometimes Drive intox or ride w/intox route delivery service driver: No Working smoke detector in home: No Carbon monox detector in home: No Do you feel safe at home: Yes Do you feel safe in your relationship?: Yes History History 0 Para Hx # Term Pregnancies Multiple births Hx # Pregnancies Ectopic pregnancies AB induced Hx Number of Living Children AB spontaneous Exam Const General: cooperative, healthy appearing, comfortable and no acute distress Orientation: alert, awake and oriented x3 HENMT Head: normal to inspection, normocephalic and atraumatic Face and sinus: normal facial exam Mouth: moist mucous membranes Eyes General: appearance normal, both eyes and all related structures Conjunctivae: conjunctivae normal Neck Neck: normal visual inspection, full ROM, trachea midline and supple Resp Effort & Inspection: normal respiratory effort and able to speak in complete sentences Auscultation: clear to auscultation bilaterally Cardio Rate: regular rate Rhythm: regular rhythm GI Palpation: soft, not firm, no guarding, no pulsatile masses and nontender Back/Spine/Pelvis Back: No back tenderness Skin General skin exam: no rashes or lesions noted Neuro General: patient alert, patient awake, moves all extremities and no focal motor deficits Cognition: normal cognition Speech: speech normal Gait: normal gait Motor: muscle tone normal throughout Sensory Exam: no sensory deficits noted Extrem General: normal to inspection, full ROM, capillary refill normal, no pedal edema and no calf tenderness Psych Appearance: grossly normal Mental Status: mental status grossly normal Course Vital Signs Vital signs: Vital Signs Temperature 37.4 C 10/25/21 15:57 Pulse 117 H 10/25/21 15:57 Respiratory Rate 15 10/25/21 15:57 Blood Pressure 130/94 H 10/25/21 15:57 Pulse Oximetry 98 10/25/21 15:57 Temperature 37.4 C 10/25/21 15:57 Temperature Source Temporal Artery Scan 10/25/21 15:57 Pulse 117 H 10/25/21 15:57 Respiratory Rate 15 10/25/21 16:05 Respiratory Effort Non-Labored 10/25/21 16:05 Respiratory Depth Normal 10/25/21 16:05 Respiratory Pattern Normal 10/25/21 16:05 Blood Pressure 130/94 H 10/25/21 15:57 Blood Pressure Position Supine 10/25/21 15:57 Pulse Oximetry 98 10/25/21 15:57 Oxygen Delivery Method Room Air 10/25/21 15:57 Oxygen Flow Rate 0 10/25/21 15:57 Pain Level 0 10/25/21 15:57
[2021-10-25 16:34] LABS: Abs Immature Grans 0.03 10^3/uL (0.0-0.06); Absolute Basophil Count 0.08 10^3/uL (0.0-0.2); Absolute Eosinophil Count 0.06 10^3/uL (0.0-0.7); Absolute Lymphocyte Count 1.65 10^3/uL (1.2-3.4); Absolute Monocyte Count 0.61 10^3/uL (0.1-0.8); Absolute Neutrophil Count 4.48 10^3/uL (1.2-6.7); Basophils % 1.2; Eosinophils % 0.9; HCT 40.3 % (36.0-46.0); HGB 13.4 g/dL (11.2-15.7); Immature Grans % 0.4; Lymphocytes % 23.9; MCH 29.6 pg (27.0-33.0); MCHC 33.3 % (32.0-36.0); MCV 89.2 fL (80-95); MPV 9.2 fL (8.0-11.0); Monocytes % 8.8; Neutrophils % 64.8; Nucleated RBC 0 %; Platelet Count 285 10^3/uL (130-400); RBC 4.52 10^6/uL (3.93-5.22); RDW 12.4 % (11.7-14.6); RDW-SD 40.8 fL; WBC 6.91 10^3/uL (4.4-10.8)
[2021-10-25 16:39] LABS: Bilirubin Negative (Negative); Blood Negative (Negative); Clarity Clear (Clear); Glucose Negative (Negative); Ketones Negative (Negative); Leukocyte Esterase Negative (Negative); Nitrite Negative (Negative); Specific Gravity >= 1.030 (1.005-1.025); Urobilinogen 0.2 EU/dL (Up TO 0.2); pH 6.5 (5-8)
[2021-10-25 16:49] LABS: Bacteria Many HPF (Negative); C & S Indicated? No/Sq. Contamination; Casts Negative LPF (Negative); Crystals Negative HPF (Negative); Epithelial Cells Many HPF (Negative); Mucus Negative (Negative); WBC 0-2 HPF (0-5)
[2021-10-25 16:56] LABS: Tricyclic Antidepressants Positive (Negative)
[2021-10-25 17:02] LABS: *AMPHETAMINES SCREEN URINE Negative (Negative); *BARBITURATES SCREEN URINE Negative (Negative); *BENZODIAZEPINES SCREEN URINE Negative (Negative); Cannabinoids THC Negative (Negative); Cocaine Screen,Urine Negative (Negative); METHADONE URINE SCREEN Negative (Negative); OPIATES URINE SCREEN Negative (Negative)
[2021-10-25 17:03] LABS: PTT Activated 27.7 sec (21.0-27.5); Prothrombin Time 10.3 sec (9.3-11.0)
[2021-10-25 17:09] LABS: ALT 21 U/L (14-59); AST 15 U/L (15-37); Albumin 3.8 g/dL (3.4-5.0); Alkaline Phosphatase 113 U/L (46-116); Anion Gap 8.6 mmol/L (3-11); BUN 10 mg/dL (7-18); Bilirubin, Total 0.3 mg/dL (0.2-1.0); CO2 24.4 mmol/L (21.0-32.0); CREATININE 1.1 mg/dL (0.55-1.02); Chloride 104 mmol/L (98-107); Estimated GFR 59.58 (mL/min/1.73m2); Glucose 93 mg/dL (74-106); Potassium 4.1 mmol/L (3.5-5.1); Sodium 137 mmol/L (136-145); TSH (W/Ref FT4) 2.65 uIU/mL (0.36-3.74); Total Protein 7.9 g/dL (6.4-8.2); Troponin I < 50 ng/L (<or=60)
--- NOTE | 2021-10-25 17:33 | DI.VRAD_ITS ---
PROCEDURE INFORMATION: Exam: XR Chest Exam date and time: 10/25/2021 4:08 PM Age: 26 years old Clinical indication: Other: L sided chest pain TECHNIQUE: Imaging protocol: XR of the chest. Views: 2 views. COMPARISON: CR THORACIC SPINE 02/20/2017 5:07 PM FINDINGS: Lungs: Clear lungs. Pleural spaces: No sizable pleural effusion. No pneumothorax. Heart/Mediastinum: Cardiomediastinal silhouette is within normal limits. Bones/joints: No acute displaced fracture or dislocation. IMPRESSION: No acute cardiopulmonary process. Dictated and Authenticated by: Alvaro Berger MD. Ordering:JESÚS Meeks MD
[2021-10-25 17:38] LABS: D-Dimer 421 ng/mlFEU (<500)
== END 2021-10-25 18:41 | disposition home or self-care (01) ==
PROVIDERS: Emergency Provider Physician Assistant; PCP Internal Medicine
DX: R07.89 Other chest pain (principal); R03.1 Nonspecific low blood-pressure reading; F41.9 Anxiety disorder, unspecified; I10 Essential (primary) hypertension
CPT/HCPCS: 36415; 80053; 80307; 81025; 93005; 96360; 99284; 71046; 81003; 81015; 83735; 84443; 84484; 85025; 85379; 85610; 85730; 93010; 99283

== ENCOUNTER 2022-12-23 01:43 | Outpatient (CLI) | payer MEDICAID, SELFPAY ==
[2022-12-23 13:29] LABS: Abs Immature Grans 0.03 10^3/uL (0.0-0.06); Absolute Basophil Count 0.07 10^3/uL (0.0-0.2); Absolute Eosinophil Count 0.11 10^3/uL (0.0-0.7); Absolute Lymphocyte Count 2.02 10^3/uL (1.2-3.4); Absolute Monocyte Count 0.53 10^3/uL (0.1-0.8); Absolute Neutrophil Count 4.89 10^3/uL (1.2-6.7); Basophils % 0.9; Eosinophils % 1.4; HCT 39.8 % (36.0-46.0); HGB 13.3 g/dL (11.2-15.7); Immature Grans % 0.4; Lymphocytes % 26.4; MCH 29.7 pg (27.0-33.0); MCHC 33.4 % (32.0-36.0); MCV 89 fL (80-95); MPV 8.8 fL (8.0-11.0); Monocytes % 6.9; Platelet Count 239 10^3/uL (130-400); RBC 4.48 10^6/uL (3.93-5.22); RDW-SD 42.5 fL; WBC 7.65 10^3/uL (4.4-10.8)
[2022-12-23 14:52] LABS: ALT 28 U/L (14-59); AST 16 U/L (15-37); Albumin 3.6 g/dL (3.4-5.0); Alkaline Phosphatase 125 U/L (46-116); Anion Gap 8.9 mmol/L (3-11); BUN 12 mg/dL (7-18); Bilirubin, Total 0.4 mg/dL (0.2-1.0); CO2 24.1 mmol/L (21.0-32.0); CREATININE 1.1 mg/dL (0.55-1.02); Calcium 9.2 mg/dL (8.5-10.1); Calculated LDL 43 mg/dL (<100); Chloride 106 mmol/L (98-107); Cholesterol 104 mg/dL (<200); Estimated GFR 70.19 (mL/min/1.73m2); Glucose 94 mg/dL (74-106); HDL Cholesterol 49 mg/dL (40-60); Potassium 4.2 mmol/L (3.5-5.1); Sodium 139 mmol/L (136-145); TSH (W/Ref FT4) 1.51 uIU/mL (0.36-3.74); Total Protein 7.7 g/dL (6.4-8.2); Triglyceride 60 mg/dL (<150)
== END 2022-12-23 01:44 | disposition home or self-care (01) ==
LOC: LBO 01:43
PROVIDERS: PCP Nurse Practitioner Adult Health; Visit Provider Nurse Practitioner Adult Health
DX: I10 Essential (primary) hypertension (principal); F41.1 Generalized anxiety disorder; F43.10 Post-traumatic stress disorder, unspecified; F32.89 Other specified depressive episodes; G25.81 Restless legs syndrome; G43.909 Migraine, unspecified, not intractable, without status migrainosus
CPT/HCPCS: 36415; 80053; 80061; 84443; 85025

== ENCOUNTER 2023-01-23 11:40 | Emergency (ER) | payer MEDICAID, SELFPAY ==
[2023-01-23 11:47] VITALS: BP 123/89; PULSE 109; RESP 16; TEMP 36.9; O2SAT 97
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
[2023-01-23] MEDS: Acetaminophen 500 MG TAB 1000 MG PO (12:11)
[2023-01-23] MEDS: Benzocaine/Menthol LOZG 15/BOX 1 EACH SUC (12:11)
[2023-01-23] MEDS: Ibuprofen 400 MG TAB PO (12:11)
[2023-01-23 12:27] LABS: Abs Immature Grans 0.05 10^3/uL (0.0-0.06); Absolute Basophil Count 0.07 10^3/uL (0.0-0.2); Absolute Eosinophil Count 0.12 10^3/uL (0.0-0.7); Absolute Lymphocyte Count 1.47 10^3/uL (1.2-3.4); Absolute Monocyte Count 0.41 10^3/uL (0.1-0.8); Basophils % 0.9; Eosinophils % 1.6; HGB 13.1 g/dL (11.2-15.7); Immature Grans % 0.7; Lymphocytes % 19.5; MCHC 32.8 % (32.0-36.0); MCV 92 fL (80-95); Monocytes % 5.5; Neutrophils % 71.8; Platelet Count 216 10^3/uL (130-400); RBC 4.37 10^6/uL (3.93-5.22); RDW-SD 43.2 fL; WBC 7.52 10^3/uL (4.4-10.8)
[2023-01-23 12:42] LABS: ALT 25 U/L (14-59); AST 15 U/L (15-37); Albumin 3.5 g/dL (3.4-5.0); Alkaline Phosphatase 123 U/L (46-116); Anion Gap 8.5 mmol/L (3-11); BUN 14 mg/dL (7-18); Bilirubin, Total 0.4 mg/dL (0.2-1.0); CO2 24.5 mmol/L (21.0-32.0); CREATININE 0.9 mg/dL (0.55-1.02); Calcium 8.4 mg/dL (8.5-10.1); Chloride 106 mmol/L (98-107); Glucose 90 mg/dL (74-106); Potassium 4.2 mmol/L (3.5-5.1); Sodium 139 mmol/L (136-145); Total Protein 7.4 g/dL (6.4-8.2)
[2023-01-23 12:45] LABS: Mono Screening Negative (Negative)
[2023-01-23 13:01] LABS: COVID-19 PCR Negative (Negative); Influenza A PCR Negative (Negative); Influenza B PCR Negative (Negative); RSV PCR Negative (Negative)
[2023-01-23 13:03] VITALS: BP 120/84; PULSE 89; RESP 16; TEMP 36.9; O2SAT 98
[2023-01-23 13:06] LABS: Source Nasopharynx
== END 2023-01-23 13:06 | disposition home or self-care (01) ==
PROVIDERS: Emergency Provider Student in an Organized Health Care Education/Training Program; PCP Nurse Practitioner Adult Health
DX: J02.8 Acute pharyngitis due to other specified organisms (principal)
CPT/HCPCS: 36415; 80053; 87637; 87880; 99283; 85025; 86308; 87081

== ENCOUNTER 2023-05-01 11:51 | Emergency (ER) | payer MEDICAID, SELFPAY ==
[2023-05-01 11:54] VITALS: BP 133/114; PULSE 128; RESP 20; TEMP 36.3; O2SAT 99
--- NOTE | 2023-05-01 12:00 | RT.EKG_ITS ---
APPROVED REPORT Exam: Resting ECG Reason for Exam: chest pain Patient Location: E HR:113 bpm ECG Measurements Heart Rate 113 AXIS OR 157 P 49 QRSd 80 QRS -22 QT 331 T 9 QTc 456 Conclusion Sinus tachycardia...rate> 99
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
[2023-05-01 12:30] LABS: Abs Immature Grans 0.06 10^3/uL (0.0-0.06); Absolute Basophil Count 0.07 10^3/uL (0.0-0.2); Absolute Eosinophil Count 0.13 10^3/uL (0.0-0.7); Absolute Lymphocyte Count 1.72 10^3/uL (1.2-3.4); Absolute Neutrophil Count 7.03 10^3/uL (1.2-6.7); Basophils % 0.7; Eosinophils % 1.4; HCT 41.2 % (36.0-46.0); HGB 13.5 g/dL (11.2-15.7); Immature Grans % 0.6; Lymphocytes % 18.1; MCH 29.3 pg (27.0-33.0); MCHC 32.8 % (32.0-36.0); MCV 90 fL (80-95); MPV 8.9 fL (8.0-11.0); Monocytes % 5.3; Neutrophils % 73.9; Platelet Count 262 10^3/uL (130-400); RDW 12.9 % (11.7-14.6); RDW-SD 41.9 fL; WBC 9.51 10^3/uL (4.4-10.8)
[2023-05-01] MEDS: Normal Saline 1,000 ML 1000 ML IV (12:33)
[2023-05-01] MEDS: Ketorolac 15 MG/ML VIAL IVP (12:33)
[2023-05-01] MEDS: Prochlorperazine 10 MG/2 ML VIAL IVP (12:34)
[2023-05-01 12:50] LABS: ALT 24 U/L (14-59); AST 18 U/L (15-37); Albumin 3.5 g/dL (3.4-5.0); Alkaline Phosphatase 124 U/L (46-116); Anion Gap 11.9 mmol/L (3-11); BUN 18 mg/dL (7-18); Bilirubin, Total 0.3 mg/dL (0.2-1.0); CO2 22.1 mmol/L (21.0-32.0); CREATININE 1.1 mg/dL (0.55-1.02); Calcium 8.7 mg/dL (8.5-10.1); Chloride 104 mmol/L (98-107); Estimated GFR 70.19 (mL/min/1.73m2); Glucose 104 mg/dL (74-106); Lipase 44 U/L (16-77); Magnesium 1.9 mg/dL (1.8-2.4); Potassium 4.2 mmol/L (3.5-5.1); Sodium 138 mmol/L (136-145); Total Protein 7.7 g/dL (6.4-8.2); Troponin I < 50 ng/L (<or=60)
[2023-05-01 13:10] LABS: D-Dimer 350 ng/mlFEU (<500)
[2023-05-01 13:44] VITALS: BP 113/79; PULSE 95; RESP 16; O2SAT 97
== END 2023-05-01 13:52 | disposition home or self-care (01) ==
PROVIDERS: Emergency Provider Emergency Medicine; PCP Nurse Practitioner Adult Health
DX: G43.909 Migraine, unspecified, not intractable, without status migrainosus (principal); R07.9 Chest pain, unspecified
CPT/HCPCS: 80053; 81025; 83690; 93005; 96361; 96374; 96375; 99284; 83735; 84484; 85025; 85379; 93010; J0780; J1885

== ENCOUNTER 2024-04-16 15:19 | Outpatient (CLI) | payer MEDICAID, SELFPAY ==
[2024-04-16 11:07] LABS: Anion Gap 7.7 mmol/L (3-11); BUN 10 mg/dL (7-18); CO2 27.3 mmol/L (21.0-32.0); Calcium 9.1 mg/dL (8.5-10.1); Chloride 106 mmol/L (98-107); Estimated GFR 78.21 (mL/min/1.73m2); Glucose 121 mg/dL (74-106); Potassium 3.8 mmol/L (3.5-5.1); Sodium 141 mmol/L (136-145)
--- OUTSIDE RECORDS SUMMARY | 2024-04-16 15:46 | XMS_ITS | Referral Summary ---
Author Organization [facility] Address [address] [place] [address] Care Team Providers Care Plateman Name Role Phone Unavailable Primary Care Provider Unavailabl e Social History Tobacco Use Types Packs/Day Years Used Date Smoking Tobacco: Never Assessed Sex and Gender Information Value Date Recorded Sex Assigned at Not on file Gender Identity Not on file Sexual Orientation Not on file Plan of Treatment Not on file
--- OUTSIDE RECORDS SUMMARY | 2024-04-16 15:46 | XMS_ITS | Encounter Summary ---
Author Organization [facility] Address [address] [place] [address] Care Team Providers Care Teaching Supervisor Name Role Phone Unavailable Primary Care Provider Unavailtata e Encounter Details Date Type Department Care Team (Late st Contact Info) Description 06/26/2021 Lab Requisition [facility] Pathology & Laboratory Medicine - [facility] [address] [place] [address] [place] [id number] Encounter for other general examination Social History Tobacco Use Types Packs/Day Years Used Date Smoking Tobacco: Never Assessed Sex and Gender Information Value Date Recorded Sex Assigned at Not on file Gender Identity Not on file Sexual Orientation Not on file documented as of this encounter Plan of Treatment Not on file documented as of this encounter Procedures Procedure Name Priority Date/Time Associated Diagnosis Comments PAP TEST Today 06/25/2021 2:00 EDT Encounter for other general examination documented in this encounter Results * PAP TEST (06/25/2021 2:00 EDT) Specimens A. Cervix and/or Endocervix , ThinPrep Imaging System with Manual Evaluation 06/30/2021 12:58 [facility] Specimen Adequacy Satisfactory for Evaluation - transformation zone component present 06/30/2021 12:58 [facility] General Categorization Negative for intraepithelial lesion or malignancy 06/30/2021 12:58 [facility] Descriptive Diagnosis Fungal organisms present morphologically consistent with Nely species. 06/30/2021 12:58 [facility] Attestation . 06/30/2021 12:58 [facility] at 1258 Clinical History See below 06/30/20 12:58 [facility] Performing Lab [facility] 06/30/2021 12:58 EST [facility] Scanned Images 06/30/2021 12:58 [facility] Papanicolaou smear specimen (specimen) CERVIX UTERI STRUCTURE / Unknown 06/25/2021 2:00 EDT 06/26/2021 9:08 EDT Paola Moise REGULATORY COMPLIANCE DIRECTOR PATHOLOGY ORDERABLES [facility] [address] [place] [address] documented in this encounter Visit Diagnoses Diagnosis Encounter for other general examination documented in this encounter
--- OUTSIDE RECORDS SUMMARY | 2024-04-16 15:46 | XMS_ITS | Clinical Summary ---
Author Organization Health system Address [address] [place] [address] Care Team Providers Care Still Operator Whiskey Name Role Phone Unavailable Primary Care Provider Unavailabl e Social History Tobacco Use Types Packs/Day Years Used Date Smoking Tobacco: Never Assessed Sex and Gender Information Value Date Recorded Sex Assigned at Not on file Gender Identity Not on file Sexual Orientation Not on file Plan of Treatment Health Maintenance Due Date Last Done Comments Hepatitis C Screen 1994 Hepatitis B Vaccine (1 of 3 - 19+ 3-dose series) 07/14 COVID-19 Vaccine ( season) 2023
--- OUTSIDE RECORDS SUMMARY | 2024-04-16 15:47 | XMS_ITS | Encounter Summary ---
Author Organization [facility] Address [address] [place] [address] Care Team Providers Care Mine Inspector Name Role Phone Unavailable Primary Care Provider Unavailabl e Encounter Details Date Type Department Care Team (Late st Contact Info) Description 06/25/2021 Lab Requisition [facility] Pathology & Laboratory Medicine - [facility] [address] [place] [address] Outr Resulting Lab, Provider Social History Tobacco Use Types Packs/Day Years Used Date Smoking Tobacco: Never Assessed Sex and Gender Information Value Date Recorded Sex Assigned at Not on file Gender Identity Not on file Sexual Orientation Not on file documented as of this encounter Plan of Treatment Not on file documented as of this encounter Procedures Procedure Name Priority Date/Time Associated Diagnosis Comments CHLAMYDIA/N. GONORRHOEAE AMPLIFIED NUCLEIC ACID Routine 06/25/2021 14:00 EDT documented in this encounter Results * CHLAMYDIA/N. GONORRHOEAE AMPLIFIED RNA (06/25/2021 14:00 EDT) Neisseria gonorrhoeae Result Negative Negative 06/26/2021 14:42 EDT [facility] Chlamydia trachomatis Result Negative Negative 06/26/2021 14:42 EDT [facility] Swab ENTIRE ENDOCERVIX / Unknown 06/25/2021 14:00 EDT 06/25/2021 21:39 EDT Provider Outr Resulting Lab MICROBIOLOGY - GENERAL ORDERABLES [facility] [address] [place] [address] documented in this encounter Visit Diagnoses Not on filedocumented in this encounter
--- OUTSIDE RECORDS SUMMARY | 2024-04-16 15:47 | XMS_ITS | Encounter Summary ---
Author Organization [facility] Address [address] [place] [address] Care Team Providers Care Oncology Nurse Name Role Phone Unavailable Primary Care Provider Unavailabl e Encounter Details Date Type Department Care Team (Late st Contact Info) Description 01/16/2020 Lab Requisition [facility] Pathology & Laboratory Medicine - [facility] [address] [place] [address] Paola Moise, [address] [place] [id number] Encounter for other general examination Social History [...] Date/Time Associated Diagnosis Comments PAP TEST Today 01/15/2020 11:00 EDT Encounter for other general examination documented in this encounter Results * PAP TEST (01/15/2020 11:00 EDT) Specimens A. Cervix and/or Endocervix , ThinPrep Imaging System with Manual Evaluation 01/23/2020 15:18 EDT [facility] Specimen Adequacy Satisfactory for Evaluation - transformation zone component absent 01/23/2020 15:18 EDT [facility] General Categorization Negative for intraepithelial lesion or malignancy 01/23/2020 15:18 EDT [facility] Attestation . 01/23/2020 15:18 T [facility] at 1518 Clinical History NONE 01/23/20 15:18 EDT [facility] Scanned Images 01/23/2020 15:18 EDT [facility] Papanicolaou smear specimen (specimen) CERVIX UTERI STRUCTURE / Unknown 01/15/2020 11:00 EDT 01/16/2020 8:48 EDT Paola Moise [facility] HAND PATHOLOGY ORDERABLES [facility] [address] [place] [address] documented in this encounter Visit Diagnoses Diagnosis Encounter for other general examination documented in this encounter
--- OUTSIDE RECORDS SUMMARY | 2024-04-16 15:47 | XMS_ITS | Data Portability ---
Author Organization [facility] Address [address] [place] [address] Care Team Providers Care Laboratory Mechanic Helper Name Role Phone LYNNWILDER NICHOLS Primary Care Provider [phone] Assessment No assessment recorded. Plan of Treatment Reminders Order Date Submit Date Provider Last Modified By Organization Details Last Modified Time Details Appointments None recorded. Lab CBC w/ auto diff 2013 014 [facility] (Lab Orders), [address] [place] [address], [id number], 4 12:40:16 CMP, serum or plasma 2013 014 [facility] (Lab Orders), [address] [place] [address], [id number], 4 13:16:15 lipid panel, serum 2013 014 [facility] (Lab Orders), [address] [place] [address], [id number], 4 11:06:16 T4, free, serum 2013 014 [facility] (Lab Orders), [address] [place] [address], [id number], 4 13:23:24 TSH, ultra-sen sitive, serum 2013 014 [facility] (Lab Orders), [address] [place] [address], 07925, 4 13:16:14 Referral neurosurg ellen referral - neck pain with an abnormal MRI 2012 013 [facility], [address] [place], [address], 3 21:49:27 pain managemen t referral - Back pain - please contact pt to schedule 2013 014 [email or web address] Portillo Clark MD, [address] [place], [address], 5 15:57:01 pain managemen t referral - chronic worsening neck pain 2013 014 [email or web address] Not available 5 15:08:59 Procedures None recorded. Surgeries None recorded. Imaging None recorded. Medication Orders Tylenol-C odeine #3 300 mg-30 mg tablet 2012 013 [address] [facility] #[id number], [address] [place] [address], [id number], 4 13:54:40 Seroquel 300 mg tablet 2012 013 INTERFACE [facility] #[id number], [address] [place] [address], [id number], 3 13:46:05 Vicodin 5 mg-300 mg tablet 2013 014 emctiernan [facility] #[id number], [address], [place], [id number], 4 14:27:14 Seroquel 300 mg tablet 2013 014 INTERFACE [facility] #[id number], [address] [place], [place], [id number], 4 14:31:05 Cymbalta 60 mg capsule,d elayed release 2013 014 INTERFACE [facility] #14583, [address], [place], [id number], 4 14:31:09 prazosin 2 mg capsule 2013 014 [id number], [address] [place], [place], [id number], 4 14:49:30 Vicodin 5 mg-300 mg tablet 2013 014 emctiernan [facility] #65004, [address] [place] [address], [id number], 4 14:46:26 omeprazol e 40 mg capsule,d elayed release 2013 014 [facility], [address], [place], [id number], 4 14:49:26 Vicodin 5 mg-300 mg tablet 2013 014 emctiernan [facility] #42096, [address] [place] [address], [id number], 4 11:27:00 Ativan 0.5 mg tablet 2013 014 [facility], [address] [place], [place], [id number], 4 11:17:52 Vicodin 5 mg-300 mg tablet 2013 014 [id number], [address] [place], [place], [id number], 4 11:17:48 Patient TargetsNo targets recorded. Patient Instructions Encounter Date Encounter Id Patient Instructions Last Modified By Organization Details Last Modified Time 11/07/2013 [id number] discussed meds and use narcotic sparingly for severe pain only, recheck as scheduled in December emctiernan Not available 11/07/2013 14:47:55 01/18/2014 [id number] vision screen* emctiernan Not available 01/18/2014 11:27:00 hearing screening* emctiernan Not available 01/18/2014 11:27:00 anticipatory guidance 18-21 years emctiernan Not available 01/18/2014 11:27:46 discussed need for other methods of pain control, discussed smoking, continue other medications emctiernan Not available 01/18/2014 11:24:44 03/28/2014 [id number] discussed medication use and need to use controlled medications sparingly emctiernan Not available 03/28/2014 11:17:53 Reason for Referral Please arrange an appt w/ or jennifer VALERIO for evaluation of R wrist pain x 2 months w/ no known injury. No edema, erythema or eccymosis present. No improvement in pain w/ conservative tx. Thanks cristina Referring Physician: Tonya Varela, Pediatric Medicine, Encounter Date: 12/15/2010 Please arrange an appt w/ [facility] [employer] for evaluation VINEET. Pt has been seeing couns. Tejal w/ smaritin x 2 yrs. Pt wants to continue w/ Tejal but needs psych care also. I was not sure if pt can be tx by our clinical psychology teacher and still continue w/ Tejal. Pt has depresssion and anxiety, hx of cutting, anger, mood swings, difficulty eating and sleeping. Has missed 3 days of school. Thanks cristina Referring Physician: Tonya Varela, Pediatric Medicine, Encounter Date: 05/27/2011 Please arrange an appt w/ [facility] for evaluation VINEET. Pt has been seeing couns. Tejal w/ smaritin x 2 yrs. Pt wants to continue w/ Tejal but needs psych care also. I was not sure if pt can be tx by our psych and still continue w/ Tejal. Pt has depresssion and anxiety, hx of cutting, anger, mood swings, difficulty eating and sleeping. Has missed 3 days of school. ThanksPt's parents to schedule own appt Referring Physician: Wilder Nova, Pediatric Medicine, Encounter Date: 05/28/2011 Referring Physician: Chance Daniel, Family Medicine, Encounter Date: 06/28/2011 Dr. Vaz or marisol please for left foot pain and suspected hypermobile foot Referring Physician: Víctor tSone, [facility] Medicine, Encounter Date: 01/17/2013 Patient needs to transfer ca re since now age 17 and cannot be [facility] Referring Physician: Wilder Nova Pediatric Medicine, Encounter Date: 04/04/2013 neck pain with an abnormal M RI Referring Physician: Wilder Nova Pediatric Medicine, Encounter Date: 08/06/2013 Pain Management Referral for Backache Back pain - please contact pt to schedule Referring Physician: Wilder Nova Pediatric Medicine, Encounter Date: 09/05/2013 Pain Management Referral for Neck pain chronic worsening neck pain Referring Physician: Wilder Nova Pediatric Medicine, Encounter Date: 03/28/2014 Results Created Date Observation Date Name Description Value Unit Range Abnormal Flag LastModifiedBy Organization Detail LastModifiedTime 01/18/2014 heari ng scree alexia* Right Ear 500 Yes Not Available [address], [address], 01/18/2014 10:53:44 01/18/2014 heari ng scree alexia* Right Ear 1000 Yes Not Available [address], [address], 01/18/2014 10:53:44 01/18/2014 heari ng scree alexia* Right Ear 2000 Yes Not Available [facility] [address] [place], [address], 01/18/2014 10:53:44 01/18/2014 heari ng scree alexia* Right Ear 4000 Yes Not Available [address], [address], 01/18/2014 10:53:44 01/18/2014 heari ng scree alexia* Left Ear 500 Yes Not Available [facility] [address], [place], [address], 01/18/2014 10:53:44 01/18/2014 heari ng scree alexia* Left Ear 1000 Yes Not Available [facility] [address], [place], [address], 01/18/2014 10:53:44 01/18/2014 heari ng scree alexia* Left Ear 2000 Yes Not Available [facility] [address], [place], [address], 01/18/2014 10:53:44 01/18/2014 heari ng scree alexia* Left Ear 4000 Yes Not Available [facility] [address], [place], [address], 01/18/2014 10:53:44 01/18/2014 visio n scree n* right eye 20/40 Not Available [facility] [address] [place], [address], 01/18/2014 10:53:44 01/18/2014 visio n scree n* left eye 20/40 Not Available [facility] [address], [place], [address], 01/18/2014 10:53:44 01/18/2014 visio n scree n* both eyes 20/30 Not Available [facility] [address], [place], [address], 01/18/2014 10:53:44 01/18/2014 visio n scree n* muscle balance Not Available [facility] [address], [place], [address], 01/18/2014 10:53:44 01/18/2014 visio n scree n* preschool right Not Available [facility] [address], [place], [address], 01/18/2014 10:53:44 01/18/2014 vivian bazan n* preschool left Not Available [facility] [address], [place], [address], 01/18/2014 10:53:44 01/18/2014 vivian n beni n* preschool binocularity Not Available [facility] [address], [place], [address], 01/18/2014 10:53:44 05/09/20 13 05/09/2013 CBC note Not Available [facility] [address] [place] [address], [address], 05/09/2013 20:48:51 05/09/20 13 05/09/2013 CBC WBC 6.5 K/uL 4.8-10 .8 Not Available [facility] [address] [place] [address], [address], 05/09/2013 20:48:51 05/09/20 13 05/09/2013 CBC RBC 4.22 M/uL 4.0-5. 2 Not Available [facility] [address] [place] [address], 89[address], 05/09/2013 20:48:51 05/09/20 13 05/09/2013 CBC HGB 12.6 gm/dL 12.0-1 6.0 Not Available [facility] [address] [place] [address], [address], 05/09/2013 20:48:51 05/09/20 13 05/09/2013 CBC HCT 38.7 % 36.0-4 6.0 Not Available [facility] [address] [place] [address], [address], 05/09/2013 20:48:51 05/09/20 13 05/09/2013 CBC MCV 91.7 fL 80-100 Not Available [facility] [address] [place] [address], [address], 05/09/2013 20:48:51 05/09/20 13 05/09/2013 CBC MCH 29.9 pg 26.0-3 4.0 Not Available [facility] [address] [place] [address], 05/09/2013 20:48:51 05/09/20 13 05/09/2013 CBC MCHC 32.6 gm/dL 31.0-3 7.0 Not Available [facility] [address] [place] [address], 05/09/2013 20:48:51 05/09/20 13 05/09/2013 CBC RDW 13.0 % 11.5-1 4.5 Not Available [facility] [address] [place] [address], 05/09/2013 20:48:51 05/09/20 13 05/09/2013 CBC platelet 217 K/uL 130-40 0 Not Available [facility] [address] [place] [address], [address], 05/09/2013 20:48:51 05/09/20 13 05/09/2013 CBC MPV 10.4 fL 7.4-10 .4 Not Available [facility] [address] [place] [address], 05/09/2013 20:48:51 05/09/20 13 05/09/2013 CBC differential method AUTO Not Available [facility] [address] [place] [address], 05/09/2013 20:48:51 05/09/20 13 05/09/2013 CBC gran/neut 59.4 % 42.2-7 5.2 Not Available [facility] [address] [place] [address], 05/09/2013 20:48:51 05/09/20 13 05/09/2013 CBC lymphs 30.1 % 20.5-5 1.1 Not Available [facility] [address] [place] [address], 05/09/2013 20:48:51 05/09/20 13 05/09/2013 CBC monos 6.9 % 1.7-9. 3 Not Available [facility] [address] [place] [address], [facility], 05/09/2013 20:48:51 05/09/20 13 05/09/2013 CBC eosin 2.1 % 0-4 Not Available [facility] [address] [place] [address], [facility], 05/09/2013 20:48:51 05/09/20 13 05/09/2013 CBC baso 1.5 % 0-1 high Not Available [facility] [address] [place] [address], [facility], 05/09/2013 20:48:51 05/09/20 13 05/09/2013 CBC abs. neutrophil/g ranulocyte 3.9 K/uL 1.4-6. 5 Not Available [facility] [address] [place] [address], [facility], 05/09/2013 20:48:51 05/09/20 13 05/09/2013 CBC abs. lymphocyte 2.0 K/uL 1.2-3. 4 Not Available [facility] [address] [place] [address], [address], 05/09/2013 20:48:51 05/09/20 13 05/09/2013 CBC abs. monocyte 0.5 K/uL 0.11-0 .59 Not Available [facility] [address] [place] [address], [address]10, 05/09/2013 20:48:51 05/09/20 13 05/09/2013 CBC abs. eosinophil 0.1 K/uL 0-0.4 Not Available [facility] [address] [place] [address], 19790, 05/09/2013 20:48:51 05/09/20 13 05/09/2013 CBC abs. basophil 0.1 K/uL 0-0.1 Not Available [facility] [address] [place] [address], 75050, 05/09/2013 20:48:51 05/09/20 13 05/09/2013 T3 total note Not Available [facility] [address] [place] [address], [address], 05/09/2013 21:18:17 05/09/20 13 05/09/2013 T3 total T3,total 0.9 NG/mL 0.9-1. 8 Not Available [facility] [address] [place] [address], 45977, 05/09/2013 21:18:17 05/09/20 13 05/09/2013 T4 free note Not Available [facility] [address] [place] [address], 23466, 05/09/2013 21:55:44 05/09/20 13 05/09/2013 T4 free thyroxine, free 0.74 NG/dL 0.54-1 .30 Not Available [facility] [address] [place] [address], 6[address], 05/09/2013 21:55:44 05/09/20 13 05/09/2013 compr ehens otis metab olic panel note Not Available [facility] [address] [place] [address], 95146, 05/09/2013 21:55:44 05/09/20 13 05/09/2013 compr ehens otsi metab olic panel fasting status NOT GIVEN Not Available [facility] [address] [place] [address], 69705, 05/09/2013 21:55:44 05/09/20 13 05/09/2013 compr ehens otis metab olic panel calcium 9.2 mg/dL 8.9-10 .6 Not Available [facility] [address] [place] [address], 21710, 05/09/2013 21:55:44 05/09/20 13 05/09/2013 compr ehens otis metab olic panel glucose 91 mg/dL 75-99 Not Available [facility] [address] [place] [address], 45826, 05/09/2013 21:55:44 05/09/20 13 05/09/2013 compr ehens otis metab olic panel BUN 16 mg/dL 8-26 Not Available [facility] [address] [place] [address], 8[address]23, 05/09/2013 21:55:44 05/09/20 13 05/09/2013 compr ehens otis metab olic panel creatinine 0.8 mg/dL 0.5-1. 2 Not Available [facility] [address] [place] [address], 18925, 05/09/2013 21:55:44 05/09/20 13 05/09/2013 compr ehens otis metab olic panel BUN/creatini ne ratio 20 Not Available [facility] [address] [place] [address], 7[address], 05/09/2013 21:55:44 05/09/20 13 05/09/2013 compr ehens otis metab olic panel protein, total 7.3 g/dL 6.0-8. 0 Not Available [facility] [address] [place] [address], 35270, 05/09/2013 21:55:44 05/09/20 13 05/09/2013 compr ehens otis metab olic panel albumin 4.6 g/dL 3.6-5. 1 Not Available [facility] [address] [place] [address], 61861, 05/09/2013 21:55:44 05/09/20 13 05/09/2013 compr ehens otis metab olic panel A/G ratio 1.7 >1 Not Available [facility] [address] [place] [address], 38[address], 05/09/2013 21:55:44 05/09/20 13 05/09/2013 compr ehens otis metab olic panel bilirubin, total 0.6 mg/dL 0.2-1. 3 Not Available [facility] [address] [place] [address], 38721, 05/09/2013 21:55:44 05/09/20 13 05/09/2013 compr ehens otis metab olic panel alk phos, total 66 IU/L 50-130 Not Available [facility] [address] [place] [address], [address], 05/09/2013 21:55:44 05/09/20 13 05/09/2013 compr ehens otis metab olic panel AST (SGOT) 15 IU/L 15-30 Not Available [facility] [address] [place] [address], 48[address], 05/09/2013 21:55:44 05/09/20 13 05/09/2013 compr ehens otis metab olic panel ALT (SGPT) 9 IU/L 7-56 Not Available [facility] [address] [place] [address], 72498, 05/09/2013 21:55:44 05/09/20 13 05/09/2013 compr ehens otis metab olic panel sodium 139 mmol/ L 136-14 3 Not Available [facility] [address] [place] [address], 32[address], 05/09/2013 21:55:44 05/09/20 13 05/09/2013 compr ehens otis metab olic panel potassium 4.2 mmol/ L 3.4-5. 2 Not Available [facility] [address] [place] [address], 21747, 05/09/2013 21:55:44 05/09/20 13 05/09/2013 compr ehens otis metab olic panel chloride 106 mmol/ L 97-112 Not Available [facility] [address] [place] [address], 20[address], 05/09/2013 21:55:44 05/09/20 13 05/09/2013 compr ehens otis metab olic panel CO2 27.9 mmol/ L 22-31 Not Available [facility] [address] [place], [address], 05/09/2013 21:55:44 05/09/20 13 05/09/2013 compr ehens otis metab olic panel anion gap 5 4-12 Not Available [facility] [address] [place], [address], 05/09/2013 21:55:44 05/09/20 13 05/09/2013 lipid panel note Not Available [facility] [address] [place] [address], 257[address], 05/09/2013 21:55:45 05/09/20 13 05/09/2013 lipid panel fasting status NOT GIVEN Not Available [facility] [address] [place] [address], 83169, 05/09/2013 21:55:45 05/09/20 13 05/09/2013 lipid panel cholesterol, total 113 mg/dL <200 Not Available [facility] [address] [place], [address], 05/09/2013 21:55:45 05/09/20 13 05/09/2013 lipid panel cholesterol, HDL 45 mg/dL >60 low Not Available [facility] [address] [place], [address], 05/09/2013 21:55:45 05/09/20 13 05/09/2013 lipid panel cholesterol, LDL 60 mg/dL <100 Not Available [facility] [address] [place], [address], 05/09/2013 21:55:45 05/09/20 13 05/09/2013 lipid panel chol/HDL ratio 2.51 Not Available [facility] [address] [place], [address], 05/09/2013 21:55:45 05/09/20 13 05/09/2013 lipid panel triglyceride s 41 mg/dL <150 Not Available [facility] [address] [place], [address], 05/09/2013 21:55:45 05/09/20 13 05/09/2013 thyro id stimu latin g hormo ne (TSH) note Not Available [facility] [address] [place], [address], 05/09/2013 21:55:46 05/09/20 13 05/09/2013 thyro id stimu latin g hormo ne (TSH) TSH 3rd gen 0.84 uIU/m L 0.32-4 .00 Not Available [facility] [address] [place], [address], 05/09/2013 21:55:46 06/01/20 14 06/01/2014 lipid panel , serum fasting status Not Indica vadim normal Not Available [facility] (Lab Orders) [address] [place] [address], [address], 06/01/2014 13:16:17 06/01/20 14 06/01/2014 lipid panel , serum cholesterol 95 mg/dL not applicabl e Not Available [facility] (Lab Orders) [address] [place] [address], 12519, 06/01/2014 13:16:17 06/01/20 14 06/01/2014 lipid panel , serum triglyceride s 64 mg/dL not applicabl e Not Available [facility] (Lab Orders) [address] [place] [address], 55[address], 06/01/2014 13:16:17 06/01/20 14 06/01/2014 lipid panel , serum HDL 44 mg/dL 40-59 normal Not Available [facility] (Lab Orders) [address] [place] [address], 25326, 06/01/2014 13:16:17 06/01/20 14 06/01/2014 lipid panel , serum LDL 38 mg/dL not applicabl e Not Available [facility] (Lab Orders) [address] [place] [address], [address], 06/01/2014 13:16:17 06/01/20 14 06/01/2014 wbc diff, auto, blood neut 63.2 % 44.0-7 4.0 normal Not Available [facility] (Lab Orders) [address] [place] [address], 17112, 06/01/2014 12:40:14 06/01/20 14 06/01/2014 wbc diff, auto, blood anc 4803 U/L not applicabl e Not Available [facility] (Lab Orders) [address] [place] [address], 51811, 06/01/2014 12:40:14 06/01/20 14 06/01/2014 wbc diff, auto, blood lymph 25.1 % 24.0-4 4.0 normal Not Available [facility] (Lab Orders) [address] [place] [address], 18438, 06/01/2014 12:40:14 06/01/20 14 06/01/2014 wbc diff, auto, blood mono 8.6 % .0-10. 0 normal Not Available [facility] (Lab Orders) [address] [place] [address], 54011, 06/01/2014 12:40:14 06/01/20 14 06/01/2014 wbc diff, auto, blood eos 2.2 % .0-5.0 normal Not Available [facility] (Lab Orders) [address] [place] [address], 72308, 06/01/2014 12:40:14 06/01/20 14 06/01/2014 wbc diff, auto, blood baso .9 % .0-2.0 normal Not Available [facility] (Lab Orders) [address] [place] [address], 67518, 06/01/2014 12:40:14 06/01/20 14 06/01/2014 CBC w/ auto diff WBC 7.6 x10_( 3)_/u L 4.0-10 .5 normal Not Available [facility] (Lab Orders) [address] [place] [address], 00842, 06/01/2014 12:40:15 06/01/20 14 06/01/2014 CBC w/ auto diff RBC 4.13 x10_( 6)_/u L 4.20-5 .40 low Not Available [facility] (Lab Orders) [address] [place] [address], 45049, 06/01/2014 12:40:15 06/01/20 14 06/01/2014 CBC w/ auto diff HGB 13.2 g/dL 12.5-1 6.0 normal Not Available [facility] (Lab Orders) [address] [place] [address], 88397, 06/01/2014 12:40:15 06/01/20 14 06/01/2014 CBC w/ auto diff HCT 38.7 % 37.0-4 7.0 normal Not Available [facility] (Lab Orders) [address] [place] [address], 85112, 06/01/2014 12:40:15 06/01/20 14 06/01/2014 CBC w/ auto diff MCV 93.9 fL 78.0-1 00.0 normal Not Available [facility] (Lab Orders) [address] [place] [address], 50551, 06/01/2014 12:40:15 06/01/20 14 06/01/2014 CBC w/ auto diff MCH 32.0 pg 27.0-3 1.0 high Not Available [facility] (Lab Orders) [address] [place] [address], 37597, 06/01/2014 12:40:15 06/01/20 14 06/01/2014 CBC w/ auto diff MCHC 34.1 g/dL 32.0-3 6.0 normal Not Available [facility] (Lab Orders) [address] [place] [address], 65438, 06/01/2014 12:40:15 06/01/20 14 06/01/2014 CBC w/ auto diff RDW 11.3 % 11.5-1 4.0 low Not Available [facility] (Lab Orders) [address] [place] [address], 47805, 06/01/2014 12:40:15 06/01/20 14 06/01/2014 CBC w/ auto diff MPV 7.0 fL 6.0-9. 5 normal Not Available [facility] (Lab Orders) [address] [place] [address], 06556, 06/01/2014 12:40:15 06/01/20 14 06/01/2014 CBC w/ auto diff plt 231 x10_( 3)_/u L 150-45 0 normal Not Available [facility] (Lab Orders) [address] [place] [address], 74418, 06/01/2014 12:40:15 06/01/20 14 06/01/2014 TSH, ultra -sens itive , serum TSH sensitive 1.170 uIU/m L 0.358- 3.740 normal Not Available [facility] (Lab Orders) [address] [place] [address], 74687, 06/01/2014 13:16:13 06/01/20 14 06/01/2014 CMP, serum or plasm a glucose-bloo d 91 mg/dL 74-106 normal Not Available [facility] (Lab Orders) [address] [place] [address], 89036, 06/01/2014 13:16:16 06/01/20 14 06/01/2014 CMP, serum or plasm a blood urea nitrogen 11 mg/dL 7-24 normal Not Available [facility] (Lab Orders) [address] [place] [address], 10037, 06/01/2014 13:16:16 06/01/20 14 06/01/2014 CMP, serum or plasm a creatinine-b lood 1.0 mg/dL 0.6-1. 3 normal Not Available [facility] (Lab Orders) [address] [place] [address], 15506, 06/01/2014 13:16:16 06/01/20 14 06/01/2014 CMP, serum or plasm a eGFR result >60.00 mL/mi n >=60.0 0 normal Not Available [facility] (Lab Orders) [address] [place] [address], 53734, 06/01/2014 13:16:16 06/01/20 14 06/01/2014 CMP, serum or plasm a sodium blood 140 mmol/ L 136-14 5 normal Not Available [facility] (Lab Orders) [address] [place] [address], [facility], 06/01/2014 13:16:16 06/01/20 14 06/01/2014 CMP, serum or plasm a potassium-bl ood 4.2 mmol/ L 3.5-5. 1 normal Not Available [facility] (Lab Orders) [address] [place] [address], 28158, 06/01/2014 13:16:16 06/01/20 14 06/01/2014 CMP, serum or plasm a chloride blood 105 mmol/ L 100-10 9 normal Not Available [facility] (Lab Orders) [address] [place] [address], 82629, 06/01/2014 13:16:16 06/01/20 14 06/01/2014 CMP, serum or plasm a total CO2 blood 27 mmol/ L 21-32 normal Not Available [facility] (Lab Orders) [address] [place] [address], 19942, 06/01/2014 13:16:16 06/01/20 14 06/01/2014 CMP, serum or plasm a anion gap 8 mEq/l 7-18 normal Not Available [facility] (Lab Orders) [address] [place] [address], 67011, 06/01/2014 13:16:16 06/01/20 14 06/01/2014 CMP, serum or plasm a calcium blood 8.8 mg/dL 8.5-10 .2 normal Not Available [facility] (Lab Orders) [address] [place] [address], 73237, 06/01/2014 13:16:16 06/01/20 14 06/01/2014 CMP, serum or plasm a AST 13 #/uL 12-32 normal Not Available [facility] (Lab Orders) [address] [place] [address], 75888, 06/01/2014 13:16:16 06/01/20 14 06/01/2014 CMP, serum or plasm a ALT 20 #/uL 12-78 normal Not Available [facility] (Lab Orders) [address] [place] [address], 71357, 06/01/2014 13:16:16 06/01/20 14 06/01/2014 CMP, serum or plasm a alkaline phosphatase 106 #/uL 45-117 normal Not Available [facility] (Lab Orders) [address] [place] [address], [id number], 06/01/2014 13:16:16 06/01/20 14 06/01/2014 CMP, serum or plasm a bilirubin total 0.2 mg/dL 0.2-1. 0 normal Not Available [facility] (Lab Orders) [address] [place] [address], [id number], 06/01/2014 13:16:16 06/01/20 14 06/01/2014 CMP, serum or plasm a protein total-blood 6.9 g/dL 6.4-8. 2 normal Not Available [facility] (Lab Orders) [address] [place] [address], [id number], 06/01/2014 13:16:16 06/01/20 14 06/01/2014 CMP, serum or plasm a albumin-bloo d 3.6 g/dL 3.4-5. 0 normal Not Available [facility] (Lab Orders) [address] [place] [address], [id number], 06/01/2014 13:16:16 06/01/20 14 06/01/2014 T4, free, serum T4 free 0.76 NG/dL 0.76-1 .46 normal Not Available [facility] (Lab Orders) [address], [place], [address], 06/01/2014 13:23:24 08/06/20 13 08/06/2013 MRI, C-spi ne Patien t Name: [place] [address] [facility]#: [id number] WILDER POLLOCK MD Exam [facility]ati on[facility] [place] [facility] Access ion: [id number] [facility] [place] [address] : 1994 DATE: 2012 MRI CERVIC AL SPINE HISTOR Y: Script states : Midlin e neck pain for severa l weeks, unreli eved with medica tion. No injury . Patien t states : Neck pain that radiat es down spine. COMPAR ADAMA: None. TECHNI QUE: 0.7 Kathya magnet and spine array coil. SEQUEN MAGDA: Sagitt al T1 SE, STIR and T2 FSE. Axial T2*. FINDIN GS: The spinal cord is normal in signal intens ity. The cervic al verteb ral bodies are normal in height . The disc spaces are preser toni. There is mild anteri or angula tion of the cervic al medull nicolas juncti on. No cord compre ssion. C2-C3: No centra l canal or forami nal compro mise. C3-C4: Left uncove rtebra l spurri ng with mild to modera te narrow ing of the left verteb ral forame n. The right verteb ral forame n and centra l canal are widely patent C4-C5: No centra l canal or forami nal compro mise. C5-C6: No centra l canal or forami nal compro mise. C6-C7: No centra l canal or forami nal compro mise. C7-T1: No centra l canal or forami nal compro mise. IMPRES JOSE L: Left uncove rtebra l spurri ng at C3-C4 causin g mild to modera te narrow ing of the left verteb ral forame n. No signif icant centra l canal compro mise. Dictat ed on: [id number] 12:01: 00 Interp reted by: Rob Wan Transc ribed by: , Signed by: Rob Wan [id number] 12:12: 07 [facility] ([facility]) [address], [place], [address], 08/06/2013 13:33:52 Result Notes None recorded. Problems Name Status Onset Date Resolution Date Notes Provider Name and Address Organization Details Recorded Time Headache Active Wilder Nova MD [address], [place], [address], [facility] 01/18/2014 11:27:00 Acute sinusitis Active Not Available [facility] 06/13/2013 03:10:06 Viral disease Active Not Available [facility] 06/13/2013 03:10:06 Knee pain Active Not Available [facility] 06/13/2013 03:10:06 Urinary tract infectious disease Active Not Available [facility] 06/13/2013 03:10:06 Sprain of wrist Active Not Available [facility] 06/13/2013 03:10:06 Impacted cerumen Active Not Available [facility] 06/13/2013 03:10:06 Contusion of wrist Active Not Available [facility] 06/13/2013 03:10:06 Pain in limb Active Not Available [facility] 06/13/2013 03:10:06 Depressive disorder Active Wilder Nova MD [address], [place], [address], [facility] 03/28/2014 11:17:47 Attention deficit hyperactivity disorder Active Not Available [facility] 06/13/2013 03:10:06 Acute suppurative otitis media without spontaneous rupture of ear drum Active , , , Not Available [facility] 06/13/2013 03:10:06 Notes: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 Huertas 1994 Problem Notes None recorded. Procedures Surgical History None recorded. Imaging Results Imaging Date Name Status LastModified by Organiz ation Details LastModified Time 08/06/2013 MRI, C-spine completed [facility] [place] ([facility]) [address], [place], [address], 08/06/2013 13:33:52 Procedure Notes None recorded. Medical Equipment None Reported. Allergies Allergen ID Allergen Name Allergen Category Reaction Reaction Severity Criticality Documentation Date Start Date Code Code System Note Provider Name and Address Organization Details Recorded Time [id number] latex environme nt,medica tion Not available Not available Not available 12/25/2012 41393 91 RxNorm Rylee Diaz [facility] 3 15:34:46 [id number] Medrol medicatio n Not available Not available Not available 02/02/201318855 2 RxNorm Kassy BELLE Almazan [facility] 3 11:22:40 Medications Name Sig Start Date Stop Date Status Note LastModified by Organization Details LastModified Time quetiapine 300 mg tablet Take 1 tablet(s) every day by oral route at bedtime. active Not Available Not Available No t Available Calan 120 mg tablet one in am active Not Available Not Available Not Available Claritin 10 mg tablet Take 1 tablet every day by oral route. active prn Not Available Not Available No t Available promethazi ne 25 mg rectal suppositor y Insert 1 supposito ry every 8 hours by rectal route as needed. 2010 active Not Available Not Available Not Avai lable Keflex 500 mg capsule Take 1 capsule 3 times a day by oral route. 2011 active Not Available Not Available Not Avai lable omeprazole 40 mg capsule,de layed release take 1 capsule by mouth once daily 2013 active Not Available Not Available Not Avai lable Zofran 8 mg tablet Take 1 tablet every 8 hours by oral route for 2 days. active Not Available Not Available No t Available Celexa 20 mg tablet Take one and 1/2 tablets by mouth AM daily. 2010 active Not Available Not Available Not Avai lable omeprazole 20 mg capsule,de layed release Take 1 capsule every day by oral route for 30 days. 2011 active prn/ uses OTC Not Available Not Available Not Available mupirocin 2 % topical ointment apply tid x 7 days 2011 active Not Available Not Available Not Avai lable Nasonex 50 mcg/actuat ion Columbia Columbia 2 sprays every day by intranasa l route. active Not Available Not Available No t Available Tylenol-Co deine #3 300 mg-30 mg tablet Take 1 tablet every 6 hours by oral route as needed. 2012 active Not Available Not Available Not Avai lable Ativan 0.5 mg tablet Take 1 tablet every 6 hours by oral route as needed. 2013 active Not Available Not Available Not Avai lable prazosin 2 mg capsule Take 1 capsule(s ) every day by oral route at bedtime. active Not Available Not Available No t Available Topamax 100 mg tablet Take 1 tablet twice a day by oral route. active Not Available Not Available No t Available Ventolin HFA 90 mcg/actuat ion aerosol inhaler Inhale 2 puffs every 4 hours by inhalatio n route. active Not Available Not Available No t Available cyclobenza karl 5 mg tablet Take 1 tablet 3 times a day by oral route as needed. 2012 active Not Available Not Available Not Avai lable duloxetine 60 mg capsule,de layed release take 2 capsules by mouth once daily 2013 active Not Available Not Available Not Avai lable Minipress active Not Available Not Shahla ilable Not Available Seroquel 200mg at bedtime active Not Available Not Available No t Available Maxalt active prn neurologi st prescribe s/ran out Not Available Not Available Not Available Topamax 2 tabs in am & 1 tab in pm x 1 week, 2 tabs in am & 2 tabs in pm by oral route, daily active rx'd by Dr. Morris's office Not Available Not Available Not Available Cymbalta 120mg in am active Not Available Not Available No t Available QNASL 80 mcg/actuat ion nasal aerosol spray Columbia 2 sprays every day by intranasa l route. active Not Available Not Available No t Available Vicodin 5 mg-300 mg tablet Take 1 tablet every 6 hours by oral route as needed. 2013 active Not Available Not Available Not Avai lable Vitals Date Recorded Respiratory rate Body weight Body temperature Body height Body mass index (BMI) Heart rate Systolic blood pressure Diastolic blood pressure Provider Name and Address Organization Details Last Updated DateTime 4 18 /min 99859.6 28330 g 96.5 [degF] 153.035 cm 26.9 kg/m2 72 /min 114 mm[Hg] 70 mm[Hg] Jigna Fortune [facility] 4 10:53:42 Date Recorded Respiratory rate Body weight Body temperature Heart rate Body mass index (BMI) Body height Systolic blood pressure Diastolic blood pressure Provider Name and Address Organization Details Last Updated DateTime 4 16 /min 73906.3 67912 g 98.5 [degF] 60 /min 27.7 kg/m2 152.4 cm 110 mm[Hg] 72 mm[Hg] Jigna [facility] 4 10:47:22 Date Recorded Body weight Body temperature Heart rate Respiratory rate Systolic blood pressure Diastolic blood pressure Provider Name and Address Organization Details Last Updated DateTime 3 60583.1 79825 g 98.1 [degF] 108 /min 20 /min 112 mm[Hg] 76 mm[Hg] Lian Banuelos ASSISTANT PROJECT ENGINEER [facility] 3 13:03:36 Date Recorded Body weight Body height Body mass index (BMI) Body temperature Heart rate Respiratory rate Systolic blood pressure Diastolic blood pressure Provider Name and Address Organization Details Last Updated DateTime 4 04365.9 01408 g 152.4 cm 25.1 kg/m2 98.1 [degF] 98 /min 20 /min 104 mm[Hg] 78 mm[Hg] Lian Banuelos ASSISTANT PROJECT ENGINEER [facility] 4 14:02:51 Date Recorded Body weight Body height Body mass index (BMI) Body temperature Heart rate Respiratory rate Systolic blood pressure Diastolic blood pressure Provider Name and Address Organization Details Last Updated DateTime 4 09676.4 94686 g 152.4 cm 25.7 kg/m2 98.3 [degF] 108 /min 20 /min 112 mm[Hg] 88 mm[Hg] Lian Banuelos LPN [facility] 4 13:54:40 Social History Question Answer Notes LastModified by Organizat ion Details LastModified Time Tobacco Smoking Status Current Every Day Smoker 03/28/14 Rylee Diaz [facility] 12/25/2012 15:34:47 What Is Your Level Of Caffeine Consumption? Heavy Information not available 12/25/2012 How Much Tobacco Do You Chew? None 17 Information not available 07/08/2011 Are You Currently Employed? Yes [email or web address] Information not available 01/18/2014 What Type Of Diet Are You Following? REGULAR 17 Information not available 07/08/2011 Education 12 Information no t available 05/09/2013 Are There Any Guns Present In Your Home? Yes Locked Information not available 12/15/2010 What Is Your Home Situation? Other Ex Fiance Information not available 12/15/2010 HIV Testing Offered Yes - Patient Accepted [email or web address] Information not available 03/27/2012 Do You Have Any Siblings? 1/2 Brother 17 Information not available 07/08/2011 Do You Have Smoke And Carbon Monoxide Detectors In Your Home? Yes 17 Information not available 07/08/2011 Are You Passively Exposed To Smoke? No 03/28/14 Information not available 12/25/2012 How Much Tobacco Do You Smoke? 0.25 PPD 2-5 Cig A Day Information not available 05/09/2013 Sex: Unknown Functional Status Question Answer Note LastModified by Organization D etails LastModified Time What is your exercise level? None Information not available 12/25/2012 Mental Status None recorded. Family History Relationship Description Onset Age of this Age Resolved Age Notes Mother Migraine previously recorded as Migraines Mother Mood disorder anxiet y (previously recorded as Mood Disorders) Mother Depressive disorder previously recorded as Depression Medical History No medical history recorded. Gynecological HistoryNo gynecological history recorded. Obstetrics History GPAL:G 0 P 0 0 0 0 Immunizations Vaccine Type Date Status Provider Name and Address Organization Details Recorded Time HPV, quadrivalent 12/17/2011 completed Not Available [facility] 09/08/2019 02:09:37 HPV, quadrivalent 02/25/2012 completed Not Available [facility] 09/08/2019 02:09:37 HPV, quadrivalent 06/26/2012 completed Not Available [facility] 09/08/2019 02:09:38 MMR 09/21/1995 completed Not Available [facility] 04:57:20 OPV 1994 completed Not Available [facility] 04:57:02 DTP-Hib 01/03/1995 completed Not Available [facility] 04:57:02 Hep B, unspecified formulation 1994 completed Not Available [facility] 07/07/2011 04:57:02 OPV 01/03/1995 completed Not Available [facility] 04:57:02 DTP-Hib 1994 completed Not Available [facility] 04:57:02 Hib, unspecified formulation 09/21/1995 completed Not Available [facility] 07/07/2011 04:57:02 Hep B, unspecified formulation 04/13/1995 completed Not Available [facility] 07/07/2011 04:57:20 Hep B, unspecified formulation 1994 completed Not Available [facility] 07/07/2011 04:57:02 varicella 11/05/1996 completed Not Available [facility] 04:57:02 OPV 1994 completed Not Available [facility] 04:57:02 DTP-Hib 1994 completed Not Available [facility] 04:57:20 MMR 12/29/1998 completed Not Available [facility] 04:57:02 OPV 12/29/1998 completed Not Available [facility] 04:57:02 Tdap 01/06/2006 completed Not Available [facility] 04:57:02 meningococcal C conjugate 11/04/2006 completed Emma Flores LPN II null, [place] [facility] 12/16/2011 11:23:47 DTaP, unspecified formulation 12/29/1998 completed Lian Banuelos LPN null, [place] [facility] 04/12/2012 11:01:45 DTaP, unspecified formulation 12/26/1995 completed Lian Banuelos LPN null, [place] [facility] 04/12/2012 11:01:45 Hep A, unspecified formulation 12/09/2008 completed Not Available [facility] 07/07/2011 04:54:54 Hep A, unspecified formulation 06/10/2008 completed Not Available [facility] 07/07/2011 04:55:48 varicella 06/10/2008 completed Not Available [facility] 04:55:48 meningococcal ACWY, unspecified formulation 06/10/2008 completed Not Available [facility] 07/07/2011 04:57:20 Past Encounters Encounter ID Performer Location Encounter Start Date Encounter Closed Date Diagnosis/Indication Diagnosis SNOMED-CT Code [id number] [facility] [address] [place] [id number] 07/18/2009 09:50:54 07/18/2009 10:50:48 ROUTINE OR CHILD HEALTH CHECK V20.[id number] [address] 05/13/2009 11:22:30 05/13/2009 13:31:32 URINARY TRACT INFECTION, SITE NOT SPECIFIED 599.[id number] [address] 06/03/2009 10:13:00 06/03/2009 11:02:09 HEADACHE 784.[id number] [address] 06/16/2009 08:50:19 06/16/2009 10:27:09 UNSPECIFIED VIRAL INFECTION 079.[id number] [address] 09/11/2009 16:06:44 09/11/2009 17:06:20 PAIN IN JOINT, LOWER LEG 719.46 [id number] [facility] [address] [place] [address] 11/20/2008 14:30:01 11/20/2008 15:15:54 HEADACHE 784.0 [id number] [facility] [address] [address] 12/09/2008 15:41:11 12/09/2008 16:29:13 ACUTE SINUSITIS, UNSPECIFIED 461.9 CONTUSION OF WRIST 923.2 1 NEED FOR P ROPHYLACTIC VACCINATION AND INOCULATION AGAINST VIRAL HEPATITIS V05.[id number] [address] 01/06/2009 14:11:51 01/06/2009 16:01:18 HEADACHE 784.0 SPRAIN OF WRIST, UNSPECIFIED SITE 842.[id number] [address] 07/21/2010 10:05:47 07/21/2010 10:41:20 UNSPECIFIED VIRAL INFECTION 079.[id number] [address] 12/15/2010 15:16:51 12/15/2010 16:53:11 ROUTINE OR CHILD HEALTH CHECK V20.2 IMPACTED CERUMEN 380.4 DEPRESSIVE DISORDER, NOT ELSEWHERE CLASSIFIED 311 PAIN IN LIMB 729.[id number] [facility] [address] [address] 12/24/2010 10:04:23 12/24/2010 10:56:08 UNSPECIFIED VIRAL INFECTION 079.[id number] [address] 05/27/2011 08:46:04 05/27/2011 11:16:25 DEPRESSIVE DISORDER, NOT ELSEWHERE CLASSIFIED [id number] [address] 06/05/2011 09:37:49 06/05/2011 10:35:30 BACKACHE, UNSPECIFIED 724.5 HEADACHE 784.0 IMPACTED CERUMEN 380.[id number] [address] 06/28/2011 16:11:42 06/28/2011 17:14:14 PAIN IN JOINT, PELVIC REGION AND THIGH 719.45 BACKACHE, UNSPECIFIED 72 4.5 PAIN IN CALLY INT, LOWER LEG 719.[id number] [address] 07/12/2011 08:53:41 07/12/2011 11:30:13 PANIC DISORDER WITHOUT AGORAPHOBIA 300.01 DEPRESSIVE DISORDER, NOT ELSEWHERE CLASSIFIED [id number] [address] 07/26/2011 12:48:19 07/26/2011 13:21:18 PANIC DISORDER WITHOUT AGORAPHOBIA 300.01 DEPRESSIVE DISORDER, NOT ELSEWHERE CLASSIFIED [id number] [address] 08/04/2011 08:48:44 08/04/2011 09:25:47 PANIC DISORDER WITHOUT AGORAPHOBIA 300.01 DEPRESSIVE DISORDER, NOT ELSEWHERE CLASSIFIED [id number] [address] 09/21/2011 16:34:32 09/21/2011 17:27:42 CELLULITIS AND ABSCESS OF UNSPECIFIED SITES 682.[id number] [address] 12/17/2011 08:47:00 12/17/2011 09:57:56 ROUTINE OR CHILD HEALTH CHECK V20.2 NEED FOR P ROPHYLACTIC VACCINATION AND INOCULATION AGAINST OTHER VIRAL DISEASES V04.89 ESOPHAGEAL REFLUX 530.[id number] [address] 03/27/2012 10:29:07 03/27/2012 11:33:27 SPECIAL SCREENING EXAMINATION FOR OTHER SPECIFIED VIRAL DISEASES V73.89 NAUSEA WITH VOMITING 787 [id number] [address] 04/17/2012 13:01:52 04/17/2012 13:35:58 IMPACTED CERUMEN 380.4 ESOPHAGEAL REFLUX 530.[id number] [address] 06/07/2012 15:21:31 06/07/2012 16:35:03 MIGRAINE, UNSPECIFIED, WITHOUT MENTION OF INTRACTABLE MIGRAINE WITHOUT MENTION OF STATUS MIGRAINOSUS 346.90 ESOPHAGEAL REFLUX 530.[id number] [place] [address] 11/04/2012 15:20:38 11/04/2012 16:04:50 SUBJECTIVE VISUAL DISTURBANCE, UNSPECIFIED 368.10 [id number] Wilder Nova MD [facility] [address] [place] [address] 12/25/2012 15:06:45 12/25/2012 16:20:51 ROUTINE OR CHILD HEALTH CHECK V20.2 LABORATORY EXAMINATION ORDERED PART OF A ROUTINE GENERAL MEDICAL EXAMINATION V72.62 [id number] [facility] [address] [place] [address] 01/17/2013 12:32:04 01/17/2013 13:50:51 PAIN IN JOINT, ANKLE AND FOOT 719.47 HYPERMOBIL ITY SYNDROME 728.5 [id number] Joy Villanueva Traci [address] [address] 02/02/2013 11:07:42 02/02/2013 11:44:50 HYPERMOBILITY SYNDROME 728.5 PAIN IN CALLY INT, ANKLE AND FOOT 719.47 [id number] [facility] [address] [place] [address] 05/09/2013 12:24:45 05/09/2013 13:17:32 MIGRAINE, UNSPECIFIED, WITHOUT MENTION OF INTRACTABLE MIGRAINE WITHOUT MENTION OF STATUS MIGRAINOSUS 346.90 PANIC DISO RDER WITHOUT AGORAPHOBIA 300.01 DEPRESSIVE DISORDER, NOT ELSEWHERE CLASSIFIED [id number] Lian Banuelos LPN [facility] [address] [place] [address] 08/06/2013 12:52:14 08/06/2013 13:49:29 Neck pain 02763038 Insomnia 392119274 [id number] Emma Kee [facility] [address] [place] [address] 09/05/2013 13:50:18 09/05/2013 14:33:34 Backache 473191160 Depressive disorder 3548 9004 [id number] Rylee Marcelo [facility] [address] [place] [id number] 11/07/2013 13:47:52 11/07/2013 14:54:58 Backache 796995721 Gastroesop hageal reflux disease 105347330 Depressive disorder 3548 9007 Headache 39104918 Insomnia 456474468 [id number] Rylee Marcelo [facility] [address] [place] [id number] 01/18/2014 10:36:04 01/18/2014 11:36:42 Adult health examination 840324865 Depressive disorder 3548 9007 Gastroesop hageal reflux disease 173700886 Headache 37359001 Backache 896520349 [id number] Emma Carlson [facility] [address] [place] [id number] 03/28/2014 10:34:12 03/28/2014 11:33:01 Neck pain 97624858 Depressive disorder 3549 9004 Panic disorder 466867723 Health Concerns Section Related Observation LastModified by Organization Detai ls LastModified Time None Recorded Concern Status LastModified by Organization Details LastModified Time None Recorded Advance Directives Directive None Recorded Payers Encounter Date Sequence Insurance Name Policy Number Policy Nash Covered Member ID Nash Member ID Guarantor Name 08/06/2013 1 [facility] (O) [id number] Saeed Reaves [id number] [employer] 09/05/2013 1 [facility] (O) [id number] Saeed Reaves [id number] [employer] Ci[employer] 11/07/2013 1 [facility] (HMO) [id number] Saeed Reaves [id number] [employer] 01/18/2014 1 [facility] PLAN (O) [id number] Saeed Reaves [id number] [employer] 03/28/2014 1 [facility] (O) [id number] Saeed Reaves [id number] [employer] Notes Date Note Type Note Provider Name and Address Organization Details Recorded Time 01/18/2014 text/html HPI Notes: Depression Screening Reported by patient. Mood in the past two weeks - has felt down, depressed, or hopeless Sense of pleasure in the past two weeks - reports loss of pleasure or interest in doing things Wilder McTiernan, MD [address], [place], [address], [facility] 01/18/2014 11:27:07 OBGyn Episode No OBEpisode recorded.
--- OUTSIDE RECORDS SUMMARY | 2024-04-16 15:47 | XMS_ITS | Encounter Summary ---
Author Organization [facility] Address [address] [place] [address] Care Team Providers Care Child Care Lead Teacher Name Role Phone Unavailable Primary Care Provider Unavailabl e Encounter Details Date Type Department Care Team (Late st Contact Info) Description 01/15/2020 Lab Requisition [facility] Pathology & Laboratory Medicine - [facility] [address] [place] [address] Outr Resulting Lab, Provider Social History Tobacco [...] Comments CHLAMYDIA/N. GONORRHOEAE AMPLIFIED NUCLEIC ACID Routine 01/15/2020 11:00 EDT documented in this encounter Results * CHLAMYDIA/N. GONORRHOEAE AMPLIFIED RNA (01/15/2020 11:00 EDT) Neisseria gonorrhoeae Result Negative Negative 01/17/2020 7:16 EDT [facility] Chlamydia trachomatis Result Negative Negative 01/17/2020 7:16 EDT [facility] Swab ENTIRE ENDOCERVIX / Unknown 01/15/2020 11:00 EDT 01/15/2020 22:44 EDT Provider Outr Resulting Lab MICROBIOLOGY - GENERAL ORDERABLES [facility] [address] [place] [address] documented in this encounter Visit Diagnoses Not on filedocumented in this encounter
[2024-04-16 21:32] LABS: Lab Add On Test DONE
[2024-04-16 22:13] LABS: FREE T4 0.88 ng/dL (0.76-1.46)
== END 2024-04-16 15:20 | disposition home or self-care (01) ==
LOC: LBO 15:23
PROVIDERS: PCP Nurse Practitioner Adult Health; Visit Provider Nurse Practitioner Adult Health
DX: Z51.81 Encounter for therapeutic drug level monitoring (principal); I10 Essential (primary) hypertension; Z68.39 Body mass index [BMI] 39.0-39.9, adult
CPT/HCPCS: 36415; 80048; 84439; 84443

== ENCOUNTER 2024-09-27 11:30 | Emergency (ER) | payer MEDICAID, SELFPAY ==
--- NOTE | 2024-09-27 11:30 | RT.EKG_ITS ---
APPROVED REPORT Exam: Resting ECG Reason for Exam: Tachycardia, reports light headed. Patient Location: E HR:126 bpm ECG Measurements Heart Rate 126 AXIS MS 135 P 44 QRSd 76 QRS -29 QT 313 T 2 QTc 454 Conclusion Sinus tachycardia...rate> 99 Inferior infarct, old...Q >35mS, II III aVF
[2024-09-27 11:36] VITALS: BP 126/90; PULSE 136; RESP 22; TEMP 36.9; O2SAT 96
[2024-09-27 12:40] LABS: COVID-19 PCR Negative (Negative); Influenza A PCR Positive (Negative); Influenza B PCR Negative (Negative); RSV PCR Negative (Negative); Source Nasopharynx
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
[2024-09-27] MEDS: Ibuprofen 600 MG TAB PO (12:58)
[2024-09-27 13:05] VITALS: PULSE 132; RESP 18; O2SAT 98
== END 2024-09-27 13:05 | disposition home or self-care (01) ==
PROVIDERS: Emergency Provider Nurse Practitioner Acute Care; PCP Nurse Practitioner Adult Health
DX: J10.1 Influenza due to other identified influenza virus with other respiratory manifestations (principal); R00.0 Tachycardia, unspecified
CPT/HCPCS: 87637; 87880; 93005; 99284; 87081; 93010

== ENCOUNTER 2025-07-30 01:25 | Outpatient (CLI) | payer MEDICAID, SELFPAY ==
[2025-07-30 15:02] LABS: Abs Immature Grans 0.08 10^3/uL (0.0-0.06); HCT 40.4 % (36.0-46.0); HGB 13.4 g/dL (11.2-15.7); Immature Grans % 0.8 %; MCH 31.3 pg (27.0-33.0); MCHC 33.2 % (32.0-36.0); MCV 94 fL (80-95); MPV 9.0 fL (8.0-11.0); Platelet Count 203 10^3/uL (130-400); RBC 4.28 10^6/uL (3.93-5.22); RDW 12.9 % (11.7-14.6); RDW-SD 44.3 fL; WBC 9.75 10^3/uL (4.4-10.8)
[2025-07-30 15:46] LABS: Magnesium 1.9 mg/dL (1.6-2.6)
[2025-07-30 15:48] LABS: ALT 51 U/L (10-49); AST 34 U/L (<34); Albumin 4.2 g/dL (3.2-5.0); Alkaline Phosphatase 103 U/L (46-116); Anion Gap 9.5 mmol/L (3-11); BUN 9 mg/dL (9-23); Bilirubin, Total 0.4 mg/dL (0.2-1.2); CO2 22.5 mmol/L (20.0-31.0); Calcium 8.6 mg/dL (8.3-10.6); Chloride 108 mmol/L (98-107); Glucose 130 mg/dL (74-106); Potassium 4.2 mmol/L (3.5-5.1); Sodium 140 mmol/L (136-145); Total Protein 7.1 g/dL (5.7-8.2)
[2025-07-30 15:49] LABS: Folate 11.2 ng/mL (>5.38)
[2025-07-30 15:50] LABS: TSH (W/Ref FT4) 1.63 uIU/mL (0.55-4.78); Vitamin B12 235 pg/mL (211-911)
== END 2025-07-30 01:26 | disposition home or self-care (01) ==
LOC: LBO 01:25
PROVIDERS: PCP Nurse Practitioner Adult Health; Visit Provider Nurse Practitioner Adult Health
DX: R51.9 Headache, unspecified (principal); G43.009 Migraine without aura, not intractable, without status migrainosus
CPT/HCPCS: 36415; 80053; 82607; 82746; 83735; 84443; 85025